=== PATIENT | female | born 1950 | race Caucasian/White ===

== ENCOUNTER → 2016-11-03 | Outpatient (CLI) | payer OTHER ==
[~2016-11-03] MED LIST: AMT50 PO; CLC6 PO; DICL1GEL28 TOP; DVN80125 PO; FEBU80TA PO; HYDR200T5 PO; INSUINJ12 SQ; INSUINJ14 SC; LCTX PO; NRN/300 PO; TMFUDL30 PO; TRAM-10 PO
[2016-11-03 14:47] LABS: HEMATOCRIT 34.9 % (37-47); MEAN CELL VOLUME 80.4 fL (80-100); MEAN CORPUSCULAR HEMOGLOBIN 27.4 pg (25-34); MEAN CORPUSCULAR HGB CONC 34.1 g/dl (32-36); MEAN PLATELET VOLUME 9.6 fL (7.4-10.4); PLATELET COUNT 163 K/uL (130-400); RED BLOOD COUNT 4.34 M/uL (4.2-5.4); WHITE BLOOD COUNT 4.41 K/uL (4.8-10.8)
[2016-11-03 15:02] LABS: URINE APPEARANCE CLEAR (CLEAR); URINE BILIRUBIN NEG (NEG); URINE COLOR YELLOW; URINE EPITHELIAL CELL AUTO >30 /lpf (0-5); URINE NITRITE NEG (NEG); UROBILINOGEN NEG (NEG)
[2016-11-03 15:03] LABS: MANUAL MICROSCOPIC REQUIRED? NO; REVIEW REQ? NO
[2016-11-03 15:16] LABS: URINE PROTIEN/CREAT RATIO 0.2 (0-0.2)
[2016-11-03 15:46] LABS: BLOOD UREA NITROGEN 23 mg/dl (7-18); BUN/CREATININE RATIO 13.4 (10-20); CALCIUM 9.6 mg/dl (8.5-10.1); CARBON DIOXIDE 31 mmol/L (21-32); CHLORIDE 95 mmol/L (98-107); GLUCOSE 304 mg/dl (70-99); POTASSIUM 4.6 mmol/L (3.5-5.1); SODIUM 132 mmol/L (136-145)
[2016-11-03 15:47] LABS: PHOSPHORUS 2.7 mg/dl (2.5-4.9)
[2016-11-03 15:56] LABS: BETA-HYDROXYBUTYRATE 0.64 mg/dL (0.2-2.81)
== END | disposition home or self-care (01) ==
LOC: C.LAB1850 12:46
PROVIDERS: ATTEND Internal Medicine Nephrology
DX: N18.3 Chronic kidney disease, stage 3 (moderate) (principal); I12.9 Hypertensive chronic kidney disease with stage 1 through stage 4 chronic kidney disease, or unspecified chronic kidney disease; E55.9 Vitamin D deficiency, unspecified; E87.1 Hypo-osmolality and hyponatremia

== ENCOUNTER → 2016-11-09 | Outpatient (CLI) | payer OTHER ==
--- NOTE | 2016-11-10 04:10 | PAP/PSG TECHNICIAN REPORT ---
[facility] Bee Robber Polysomnogram Report Study name: None Report date: 11/10/2016 Study date: 11/09/2016 Referring Physician: ELIESER GUAJARDO DO, DO Name: DIETER STINSON Interpreting Physician: Elieser Guajardo D.O. Date of : 1950 Bee Robber: Jaja Sebastian [facility]. Sex: Female Age: 66 StudyType: PSG Weight: 165 lbs Height: 66 years, Height 5' 6" BMI: 26.63 Medications: Albuterol, Amitriptyline 50 mg, Aspirin 81 mg, Calcium, Contour, D 1000, Gabapentin 300 mg, Levemir, Novolog, Plaquenil 200 mg, Symbicort 80-4.5 MCG, Uloric 80 mg, Voltaren 1 % Patient History 66 yr. old female here for a diagnostic sleep study. Patient complains of loud snoring. She was prescribed supplemental nocturnal oxygen during a hospital admission in June and is hoping to discontinue using it. Patients [place] Sleepiness scale score is 12/24. Parameters Monitored NPSG: E1-M2, E2-M1, Fp1-M2, Fp2-M1, F3-M2, F4-M2, F4-M1, C3-M2, C4-M2, C4-M1, O1-M2, O2-M2, O2-M1, T3-M2, T4-M1, P3-M2, P4-M1, CHIN1, CHIN2, HR, EKG, Legs, PFLOW, SNOR, FLOW, CFLOW, Tidal Volume, THOR, ABDO, SpO2, PLTH, CPRESS, ETCO2 Wave, ETCO2, pH Sleep Architecture Sleep Stages Time at Lights Off 9:46:21 PM STAGES Time (min.) TST (%) Time at Lights On 3:57:51 AM Wake 122.5 -- Total Recording Time (TRT) 371.50 min. N1 22.0 9 Total Sleep Period (TSP) 258.0 min. N2 140.5 56 Total Sleep Time (TST) 249.0min. N3 61.0 24 Awake Time 122.5 min. REM 25.5 10 Wake after Sleep Onset 75.5 min. Sleep Efficiency (SE) 67 % Sleep Onset Latency (DARNELL) 47.0 min. Number of Stage 1 Shifts None Awakenings 9 Stage Changes 50 Number of REM periods 3 REM 25.5 10 REM Latency 86.5 min. NREM 223.5 90 Body Position Analysis Supine Right Left Side Prone Vertical Total Sleep Time (min.) 311.7 0.0 0.0 0.00 0.0 0.6 Total Sleep Time (%) 100% 0% 0% 0 0% N/A% Total Sleep Time REM (min.) 25.5 0.0 0.0 None 0.0 0.0 Total Sleep Time NREM (min.) 223.5 0.0 0.0 None 0.0 0.0 Intermittent Wake (min.) 62.7 59.0 0.0 None 0.0 0.6 Total Sleep Period (%) 100% None None None None None Arousals Myoclonus (PLM) * Events Count Index Events Count Index Spontaneous 3 1 Events Awake (PLMW) 37 18.1 Respiratory 7 1.9 Events Asleep w/ Arousal (PLMA) 4 1.0 PLM 4 1 Events Asleep w/o Arousal (PLMS) 224 54.0 Snoring 1 0 Total Asleep 228 54.9 Total 15 4 Total 265 43 Respiratory Analysis * CA OA MA CH H RERA Total Count 1 2 0 0 134 1 137 Index 0.2 0.5 0.0 0 32.3 0 33.3 Mean Duration 20.0 18.0 0.0 0.00 23.4 17.8 23.3 Longest Duration 20.0 20.9 0.0 0.00 0.0 17.8 58.7 Respiratory Event Summary Total Supine ~Supine Right Left Prone REM NREM Apneas Count 3 3 N/A N/A N/A N/A 1 2 Index 0.7 1 N/A N/A N/A N/A 2 1 Hypopneas (4% Desat) Count 134 134 N/A N/A N/A N/A 32 102 Index 32.3 32.3 N/A N/A N/A N/A 75.3 27.4 Apneas & All Hypopneas Count 137 137 N/A N/A N/A N/A 33 104 Index 33.0 33 N/A N/A N/A N/A 77.6 27.9 Respiratory Events (Furnace Installer Helper+All Hyp+RERA) Count 137 138 N/A N/A N/A N/A 33 104 Index 33.3 33 N/A N/A N/A N/A 80.0 27.9 Respiratory Related Arousal Count 7 138 N/A N/A N/A N/A 4 4 Index 1.9 2 N/A N/A N/A N/A 9 1 Snoring Analysis Supine Right Left Prone REM NREM Total Snore duration 7.7 min Snores count 366 N/A N/A N/A 20 346 366 Snore mean duration 1.3 Sec Snores index 88 N/A N/A N/A 47.1 92.9 88.2 TST with snoring (%) 3.1% Desaturation Event Summary: Minimum %SpO2 Event Count Mean/Min/Max Duration(sec.) Desaturation Index % Time In Bed > 90 228 17.6 / 5.3 / 59.0 79.1 53.8 86 - 90 74 15.0 / 7.0 / 36.8 31.4 43.9 81 - 85 1 16.8 / 16.8 / 16.8 12.1 1.5 76 - 80 0 N/A 0.0 0.4 71 - 75 0 N/A 0.0 0.3 66 - 70 0 N/A 0.0 0.0 61 - 65 0 N/A 0.0 0.0 56 - 60 0 N/A 0.0 0.0 51 - 55 0 N/A 0.0 0.0 < 50 0 N/A 0.0 0.0 Total REM NREM Awake <50% 0.0 min. 0.0 min. 0.0 min. 0.0 min. 51 - 60% 0.0 min. 0.0 min. 0.0 min. 0.0 min. 61 - 70% 0.0 min. 0.0 min. 0.0 min. 0.0 min. 71 - 80% 2.3 min. 1.9 min. 0.4 min. 0.0 min. 81 - 90% 146.2 min. 7.1 min. 124.9 min. 14.2 min. 91 - 100% 173.0 min. 16.4 min. 98.2 min. 58.3 min. Average 91 91 90 92 Minimum SpO2 70 71 70 81 Desaturation Event Index 38.4 84.7 43.8 19.1 # Desat. Events below 89% 173 24 131 18 Time(%) with Saturation below 89% 13.1 1.9 10.4 0.8 Time(min.) with Saturation below 89% 42.0 6.2 33.3 2.4 Time (mins) REM (mins) NREM (mins) % of TST SpO2 Below 90% 192 31 N161 32.8 SpO2 Below 88% 46 0 0 7 Heart Rate Analysis Min (bpm) Max (bpm) Average (bpm) Awake 78 107 88 NREM 82 97 89 REM 75 96 86 Overall 75 97 89 Supplemental O2 Values Minimum O2 level: None Value Start Time End Time Bee Robber Comments Mrs. Stinson slept in the right and supine positions. No cardiac arrhythmia. PLMs noted. No bruxism noted. Snoring was noted and scored as a 3 on a scale of 0 through 5. (0=no snoring, 5=snoring loud enough to be heard through a closed door or down the [address] way) Mrs. Stinson awoke to use the restroom at 3:06 with stomach pains, she took an anti-diarrhea medication and attempted twice two get reconnected and resume study. At 3:57 am Mrs. Stinson had a complete study and wished to be unhooked to use the restroom freely. Mrs. Stinson stated, that was a normal night until the stomach pains started. The final report will be interpreted and signed by a sleep physician. The completed physician report will then be placed in the patient medical record. Therapy (cm H2O) 0 TIB (min.) 371.5 TST (min.) 249.0 Sleep Onset (min.) 47.0 REM Onset From Sleep (min.) 86.5 Sleep Efficiency % 67 Wakefulness (%) 33 Wakefulness (min.) 122.5 NREM 1 (%) 9 NREM 1 (min.) 22.0 NREM 2 (%) 56 NREM 2 (min.) 140.5 NREM 3 (%) 24 NREM 3 (min.) 61.0 REM (%) 10 REM (min.) 25.5 # Arousals 15 Arousal Index 4 # Snore 366 Snore Index 88.2 AHI 33.0 AHI Supine 33 AHI Non-Supine N/A NREM AHI 27.9 REM AHI 77.6 RDI 33.3 # Obstructive Apnea 2 # Central Apnea 1 # Mixed Apnea 0 # Hypopneas 134 RERAs 1 Total Respiratory Events 138 Time Below SpO2 89% (min.) 39.6 Mean NREM SpO2 (%) 90 Mean REM SpO2 (%) 91 Mean Sleep SpO2 (%) 90 Min NREM SpO2 (%) 70 Min REM SpO2 (%) 71 Position Supine (min.) 311.7 Position Non-supine (min.) 0.0 LM Index Sleep 54.9 LM Index NREM 49.9 LM Index REM 98.8 Mean Heart Rate (bpm) 89 Min Heart Rate (bpm) 75
--- NOTE | 2016-11-12 20:50 | Sleep Study ---
Sleep Study Report Date of Service: 11/09/2016 Sleep Study Report Clinical data: Patient is a 66-year-old female with a history of snoring. She has excessive daytime somnolence with an Brundidge score of 12. She had an overnight pulse oximetry study showing severe hypoxia with saturations as low as 65 percent. This was an in-lab overnight diagnostic polysomnography. Sleep architecture: Total sleep. Was 258.0 minutes. The total sleep time was 249.0 minutes. The sleep efficiency was moderately reduced to 67 percent. Sleep onset latency was prolonged to 47 minutes. Wake after sleep onset was prolonged to 75.5 minutes. REM latency was normal at 86.5 minutes. Sleep consisted of stage N1 9 percent, stage N2 56 percent, stage N3 24 percent , and stage REM 10 percent. Arousal data: Patient had a total of 15 arousals including 3 spontaneous arousals, 7 respiratory arousals, 4 PLM arousals, and 1 snoring arousal. The arousal index was 4. PLM data: The patient had a total of 228 periodic limb movements of sleep for an index of 54.9. There were only 4 arousals for a PLM arousal index of 1.0. Respiratory data: The patient had a total of 137 respiratory events including 1 central apnea, 2 obstructive apneas, and 134 hypopneas. The hypopneas were scored according to the 4 percent desaturation rule. The longest apnea was 20.9 seconds. The mean duration of the hypopneas was 23.4 seconds. The apnea-hypopnea index was elevated to 33.0 events per hour. This reflects moderate sleep apnea. Oximetry data the average saturation was 91 percent. The minimum saturation was 70 percent. The patient had a total of 42 minutes with saturations less than 89 percent. EKG: The underlying cardiac rhythm was normal sinus. The cardiac rate ranged from 75 to 97 beats per minute. The average rate was 89 beats per minute. No arrhythmia was noted. Bricklayer Apprentice comments: The patient slept in the right and supine positions. PLMS noted. No bruxism noted. Snoring was noted and scored as a 3 on a scale of 0 through 5. The patient awaken to use the restroom at 3:06 a.m. was stomach pains. At 3:57 a.m. the patient had a complete study and wished to be on how to use the restroom freely. Impressions: 1. Obstructive sleep apnea-moderate 2. Periodic limb movement disorder Comments: The patient has moderate sleep apnea. Her sleep efficiency was decreased mainly related to a prolonged sleep latency. Her sleep architecture showed a decrease in REM sleep. She spent almost the entire night supine. There were frequent limb movements but with few arousals. Oxygenation was abnormal. She does have diabetes mellitus as a comorbidity. Treatment is indicated. Recommendations: 1. It is advised that the patient be given a trial of nasal CPAP. This could be given by an in-lab CPAP titration study or with auto CPAP. 2. If possible the patient should avoid sleeping in the supine position. There is typically more respiratory events when supine. 3. Further suggestions will be made following a trial of nasal CPAP. 4. If the patient refuses nasal CPAP therapy she would be a candidate for nocturnal oxygen therapy. Copies To 1: Elieser Thompson DO; Keyla Albrecht M.D.
== END | disposition home or self-care (01) ==
LOC: C.NEUR 21:00
PROVIDERS: ATTEND Internal Medicine Pulmonary Disease
DX: G47.33 Obstructive sleep apnea (adult) (pediatric) (principal); I12.9 Hypertensive chronic kidney disease with stage 1 through stage 4 chronic kidney disease, or unspecified chronic kidney disease; N18.3 Chronic kidney disease, stage 3 (moderate); D86.9 Sarcoidosis, unspecified; E55.9 Vitamin D deficiency, unspecified; E11.9 Type 2 diabetes mellitus without complications

== ENCOUNTER → 2016-11-17 | Outpatient (CLI) | payer OTHER ==
--- NOTE | 2016-11-17 16:49 | DIAGNOSTIC IMAGING REPORT ---
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 There are no acute fractures. There is an old ulnar styloid fracture. There is a large bony erosion involving the radial aspect of the middle phalanx of the fifth finger distally. There is an old healed fracture of the fourth metacarpal. Arthritic changes are present the level the first carpal metacarpal joint. There is minimal subluxation. IMPRESSION: 1. No acute fractures 2. Large bony erosion involving the middle phalanx of the fifth finger Electronically signed by: Isaias Sotelo M.D. 11/17/2016 4:48 PM Dictated Date/Time: 11/17/2016 4:45 PM
--- NOTE | 2016-11-17 16:59 | DIAGNOSTIC IMAGING REPORT ---
LEFT HAND MIN 3 VIEWS ROUTINE CLINICAL HISTORY: Sarcoidosis. Hereditary sensory-motor neuropathy. COMPARISON: None FINDINGS: Alignment of left hand is anatomic. There is no fracture or suspicious lesion. Heterogeneity of the bones is noted with numerous lucencies, a nonspecific finding. There is mild joint space narrowing within multiple articulations of the left hand. IMPRESSION: 1. Heterogeneity of the osseous structures within the left hand with numerous scattered lucencies, a nonspecific finding. 2. Mild joint space narrowing within multiple articulations of the left hand. Electronically signed by: Sergio Buitrago M.D. 11/17/2016 4:57 PM Dictated Date/Time: 11/17/2016 4:55 PM
[2016-11-17 17:58] LABS: C-REACTIVE PROTEIN 1.01 mg/dl (0-0.29); RHEUMATOID FACTOR < 10.0 U/mL (0-15); TOTAL IRON BINDING CAPACITY 309 mcg/dl (250-450)
== END | disposition home or self-care (01) ==
LOC: C.RAD1850 16:27
PROVIDERS: ATTEND Internal Medicine Rheumatology
DX: D86.9 Sarcoidosis, unspecified (principal); G60.0 Hereditary motor and sensory neuropathy; M79.641 Pain in right hand; M79.642 Pain in left hand; M85.841 Other specified disorders of bone density and structure, right hand

== ENCOUNTER → 2017-04-30 | Outpatient (CLI) | payer OTHER ==
[2017-04-30 12:41] LABS: MEAN CELL VOLUME 80.7 fL (80-100); MEAN CORPUSCULAR HEMOGLOBIN 26.9 pg (25-34); MEAN CORPUSCULAR HGB CONC 33.3 g/dl (32-36); MEAN PLATELET VOLUME 9.9 fL (7.4-10.4); PLATELET COUNT 194 K/uL (130-400); RED CELL DISTRIBUTION WIDTH CV 14.1 % (11.5-14.5); RED CELL DISTRIBUTION WIDTH SD 41.2 fL (36.4-46.3); WHITE BLOOD COUNT 5.25 K/uL (4.8-10.8)
[2017-04-30 13:02] LABS: ALBUMIN 3.6 gm/dl (3.4-5.0); BLOOD UREA NITROGEN 24 mg/dl (7-18); CALCIUM 9.2 mg/dl (8.5-10.1); CARBON DIOXIDE 31 mmol/L (21-32); CREATININE 1.65 mg/dl (0.60-1.20); GLUCOSE 275 mg/dl (70-99); PHOSPHORUS 2.5 mg/dl (2.5-4.9); POTASSIUM 4.7 mmol/L (3.5-5.1); SODIUM 130 mmol/L (136-145)
== END | disposition home or self-care (01) ==
LOC: C.LABPBG 09:51
PROVIDERS: ATTEND Internal Medicine Nephrology
DX: N18.3 Chronic kidney disease, stage 3 (moderate) (principal); I12.9 Hypertensive chronic kidney disease with stage 1 through stage 4 chronic kidney disease, or unspecified chronic kidney disease; E87.1 Hypo-osmolality and hyponatremia; E55.9 Vitamin D deficiency, unspecified

== ENCOUNTER → 2017-08-16 | Outpatient (CLI) | payer OTHER ==
--- NOTE | 2017-08-16 16:20 | DIAGNOSTIC IMAGING REPORT ---
CHEST 2 VIEWS ROUTINE HISTORY: 67 years-old Female D86.9 Sarcoidosis COMPARISON: CT chest 06/13/2016, chest radiographs 12/06/2015 TECHNIQUE: PA and lateral views of the chest FINDINGS: Cardiac silhouette is within normal limits. Chronic reticular opacities are redemonstrated with cephalad retraction and elevation of the lisset. No pneumothorax or pleural effusion. Calcified granulomas about the bilateral lisset are again seen. No lobar airspace consolidation to suggest pneumonia. Disease within the chest appears generally unchanged from comparison. Bones appear grossly intact. IMPRESSION: 1. No acute process. 2. Chronic interstitial lung disease. The above report was generated using voice recognition software. It may contain grammatical, syntax or spelling errors. Electronically signed by: Caesar Owusu M.D. 08/16/2017 4:18 PM Dictated Date/Time: 08/16/2017 4:16 PM
== END | disposition home or self-care (01) ==
LOC: C.RAD1850 15:14
PROVIDERS: ATTEND Internal Medicine Pulmonary Disease
DX: D86.9 Sarcoidosis, unspecified (principal); J84.9 Interstitial pulmonary disease, unspecified

== ENCOUNTER → 2017-12-07 | Outpatient (CLI) | payer OTHER ==
[2017-12-07 12:44] LABS: BASO % 0.6 %; BASO ABS # 0.03 K/uL (0-0.2); EOS ABS # 0.21 K/uL (0-0.5); HEMATOCRIT 34.5 % (37-47); HEMOGLOBIN 11.6 g/dL (12.0-16.0); IG# 0.01 K/uL (0.00-0.02); LYMPH % 37.6 %; LYMPH ABS # 1.95 K/uL (1.2-3.4); MEAN CORPUSCULAR HEMOGLOBIN 27.2 pg (25-34); MEAN CORPUSCULAR HGB CONC 33.6 g/dl (32-36); MEAN PLATELET VOLUME 9.6 fL (7.4-10.4); MONO % 9.2 %; MONO ABS # 0.48 K/uL (0.11-0.59); NEUT % 48.4 %; NEUT ABS # 2.51 K/uL (1.4-6.5); PLATELET COUNT 191 K/uL (130-400); RED CELL DISTRIBUTION WIDTH CV 13.9 % (11.5-14.5); RED CELL DISTRIBUTION WIDTH SD 40.9 fL (36.4-46.3); WHITE BLOOD COUNT 5.19 K/uL (4.8-10.8)
[2017-12-07 13:19] LABS: ALBUMIN 3.4 gm/dl (3.4-5.0); ALKALINE PHOSPHATASE 145 U/L (45-117); ALT/SGPT 17 U/L (12-78); AST/SGOT 17 U/L (15-37); CREATININE 1.73 mg/dl (0.60-1.20); TOTAL PROTEIN 7.9 gm/dl (6.4-8.2)
== END | disposition home or self-care (01) ==
LOC: C.LABPBG 08:18
PROVIDERS: ATTEND Internal Medicine Rheumatology
DX: D86.9 Sarcoidosis, unspecified (principal); M13.0 Polyarthritis, unspecified; Z79.899 Other long term (current) drug therapy

== ENCOUNTER 2022-01-26 13:24 | Inpatient (IN) ==
--- NOTE | 2022-01-26 13:44 | ED Triage Note ---
Date of Service January 26, 2022 History of Present Illness This patient was briefly evaluated while in triage. An abbreviated physical exam was performed. This patient is a 71-year-old Female with past medical history of pulmonary sarcoidosis, GUY, pulmonary HTN, pneumonia, who presents to the ED for ev aluation of difficulty breathing that worsened 4 days ago after finishing a prednisone taper for a flair of her sarcoidosis back in December. She is having a difficult time getting around her house due to dyspnea. Has been admitted in the past. Increased O2 to 4L from 3L today and this helped. Feels similar to prior flairs. No chest pain. Physical Exam CONSTITUTIONAL: slightly dyspneic, otherwise conversational, in mild distress CARDIAC: tachycardic rate, regular rhythm PULMONARY: dyspneic, rales in right base Initial orders for labs and / or imaging were placed and patient was placed in the waiting area until a bed is available. Please see further documentation for the full ED course.
--- NOTE | 2022-01-26 14:24 | XRay Report ---
XR chest 2V PA/lateral HISTORY: 71 years-old Female Dyspnea acute shortness of breath COMPARISON: Chest radiograph 05/30/2019, chest CT 06/13/2016 TECHNIQUE: PA and lateral views of the chest FINDINGS: Cardiac silhouette is enlarged. Bilateral hilar enlargement with architectural distortion, upper lobe and perihilar predominant scarring. No pneumothorax. Small pleural effusions. Bilateral reticular no dular opacities with progressively worsened airspace densities. Degenerative changes of the shoulders and spine. IMPRESSION: 1. Hilar enlargement with chronic reticular nodular opacities compatible with the patient's clinical history of sarcoidosis with chronic fibrotic change. 2. Progressively worsened bilateral mixed interstitial and alveolar opacities which may represent wor sening of the pulmonary sarcoidosis, superimposed pneumonia or pulmonary edema. 3. Cardiomegaly with small pleural effusions. ACT 112: Negative or not required by law. The above report was generated using voice recognition software. It may contain grammatical, syntax o r spelling errors. Electronically signed by: Cedric Owusu M.D. 01/26/2022 2:22 PM
[2022-01-26 15:19] LABS: Basophils # (auto) 0.03 K/uL (0-0.2); Basophils % (auto) 0.3 %; Eosinophils # (auto) 0.01 K/uL (0-0.50); Eosinophils % (auto) 0.1 %; Hematocrit (blood only) 37.4 % (34.1-44.9); Immature Granulocytes # (auto) 0.06 K/uL (0.00-0.02); Immature Granulocytes % (auto) 0.6 %; Lymphocytes # (auto) 0.42 K/uL (1.2-3.4); Lymphocytes % (auto) 4.3 %; Mean Corpuscular Hemoglobin 26.3 pg (25.0-34.0); Mean Corpuscular Hgb Conc 32.1 g/dL (32.0-36.0); Mean Corpuscular Volume 81.8 fL (80.0-100.0); Mean Platelet Volume 9.3 fL (9.4-12.3); Monocytes # (auto) 0.63 K/uL (0.24-0.82); Monocytes % (auto) 6.5 %; Neutrophils # (auto) 8.55 K/uL (1.4-6.5); Neutrophils % (auto) 88.2 %; Platelet Count 222 K/uL (130-400); RDW Coefficient of Variation 15.1 % (11.5-14.5); RDW Standard Deviation 44.4 fL (36.4-46.3); Red Blood Count 4.57 M/uL (3.93-5.22)
[2022-01-26 15:48] LABS: Alanine Aminotransferase 30 U/L (7-52); Albumin Globulin Ratio 0.9 (0.9-2); Albumin Level 3.5 gm/dl (3.4-5.0); Alkaline Phosphatase 147 U/L (34-104); Anion Gap 8 (3-11); Aspartate Aminotransferase 27 U/L (13-39); Blood Urea Nitrogen 31 mg/dl (6-23); Calcium 9.3 mg/dl (8.5-10.1); Carbon Dioxide 30 mmol/L (21-32); Chloride 93 mmol/L (98-107); Globulin 3.8 gm/dl (2.5-4.0); Glucose 289 mg/dl (70-99(Fasting)); Potassium 5.1 mmol/L (3.5-5.1); Sodium 131 mmol/L (136-145); Total Protein 7.3 gm/dl (6.0-8.3)
[2022-01-26 16:10] LABS: Troponin I High Sensitivity 51.1 pg/ml (0-14)
[2022-01-26 16:16] LABS: Influenza A virus by PCR Negative (Neg); Influenza B virus by PCR Negative (Neg); RSV by PCR Negative (Neg); SARS CoV2 RNA(COVID-19) InHosp NEGATIVE (Negative)
[2022-01-26 16:23] LABS: BUN Creatinine Ratio 16.6 (10-20); Est GFR (African American) 30.8 ml/min; Est GFR (Non-African American) 26.6 ml/min
[2022-01-26] MEDS ORDERED: ASPIRIN CHEW 324 MG PO STA (17:02)
[2022-01-26] MEDS ORDERED: SODIUM CHLORIDE 0.9% 1000ML 500 ML IV ONE (17:02)
--- NOTE | 2022-01-26 17:07 | Emergency Department Note ---
Impression & Plan Chest pain, Hypoxia, NELSON (dyspnea on exertion), Sarcoid, UNIQUE (acute kidney injury) ED Provider Note NAME: DIETER STINSON AGE: 71 SEX: F : 1950 ARRIVES VIA: Walk-In INFORMANT: Patient, ED PROVIDER(S): Ilir Woo DO CHIEF COMPLAINT: Shortness of breath HPI: The patient is a 71-year-old female who presented to the emergency department for an evaluation of difficulty breathing. The patient's noticed difficulty breathing especially with exertion. She has noticed a cough which is nonproductive. She denies having any hemoptysis or chest pain. She denies having any lower extremity swelling. She started having symptoms approximately 1 month ago. She is scheduled for an echocardiogram later this week. The lisbeth ent states she was seen by her primary hopper operator as she has a history of sarcoidosis. She was started on a course of steroids which has slowly been decreasing. She recently stopped the steroids last week and feels as though the symptoms are became much worse over the last few days. The patient denies having any orthopnea. The patient called her hopper operator and was referred to the emergency department for further evaluation. ROS: See above HPI for pertinent positives & negatives. A total of 10 systems reviewed and were otherwise negative. PAST MEDICAL HISTORY: See Below PAST SURGICAL HISTORY: See Below FAMILY HISTORY: See Below SOCIAL HISTORY: See Below HOME MEDICATIONS: See Below ALLERGIES: See Below VITALS: See Below PHYSICAL EXAMINATION: GENERAL: Patient is awake alert in no acute distress patient is resting comfortably and showing no signs of anxiety EYES: The conjunctivae are clear. The pupils are round and reactive. EARS, NOSE, MOUTH AND THROAT: The nose is without any evidence of any deformity. Mucous membranes are moist. Tongue is midline. NECK: The neck is nontender and supple. RESPIRATORY: Breath sounds are noted throughout. There were faint rales noted at both bases. There is mild conversational dyspnea. CARDIOVASCULAR: Regular rate and rhythm noted there no murmurs rubs or gallops normal S1 normal S2. GASTROINTESTINAL: The abdomen is soft. Abdomen is nontender. PELVIS: The Pelvis is stable. No tenderness to palpation is noted. BACK: No midline tenderness or or step-off noted range of motion in flexion extension as well as rotation no signs of muscle spasm noted MUSCULOSKELETAL/EXTREMITIES: There is no evidence of gross deformity full range of motion is noted in the hips and shoulders. SKIN: There is no obvious evidence of any rash. There are no petechiae, pallor or cyanosis noted. NEUROLOGIC: Patient is awake alert and oriented x3 MEDICAL DECISION MAKING: The patient is a 71-year-old female who presented to the emergency department for an evaluation of difficulty breathing. The patient has been on steroids for multiple weeks. These were recently weaned off and the patient started having worsening symptoms. The patient called her primary pulmonary doctor and was referred to the emergency department. I discussed patient's laboratory and radiographic studies with her. She was found to have a significant degree of hypoxia. Because of this I did discuss her condition with the on-call [facility]. They have agreed to evaluate the patient in the emergency department for further management and disposition. Triage Nursing notes reviewed. Prior medical records reviewed Vital Signs: reviewed and remarkable for hypoxia Differential diagnosis: Reactive airway disease, pneumonia, pneumothorax, COPD, CHF, infections, cardiac ischemia, pulmonary embolism, musculoskeletal, gastrointestinal, as well as other pathologies. ER treatment provided: See below Diagnostics interpreted by me: ECG: EKG was obtained in the emergency department. My interpretation is sinus tachycardia 104 bpm. There is no ectopy. There is no acute ST segment abnormalities noted. Anterior T wave abnormalities were appreciated. This was compared to a tracing from September 16, 2015. No changes were noted. Cardiac Monitoring: An order was placed for continuous cardiac monitoring. The monitor shows a rate of 98 bpm with sinus rhythm. Laboratory studies: As stated above and show below. Imaging studies: See below Consultation(s): I discussed this case with Dr. Lim who is on-call for the [facility]. Past Med/Surg History Medical History Acute dyspnea Chronic hypoxemic respiratory failure Chronic kidney disease, stage III (moderate) History of endometriosis History of influenza History of osteopenia History of parotitis Hyperparathyroidism Hypertension Hyponatremia Left knee pain GUY (obstructive sleep apnea) Pulmonary hypertension Pulmonary sarcoidosis Restrictive lung disease Sinus tachycardia Surgical History History of tonsillectomy History of total abdominal hysterectomy Family History Unknown Breast cancer Colorectal cancer Bladder cancer Mother Thyroid disorder Father Coronary heart disease Diabetes Kidney disease Social History Smoking Status: Never smoker Preferred Language: Estonian Feels Safe at Home: Yes Allergies Allergies Allergy/AdvReac Type Severity Reaction Status Date / Time acetaminophen Allergy Unknown Verified 12/25/21 12:54 benzonatate Allergy Unknown UNKNOWN Verified 12/25/21 12:54 cephalexin [From Keflex] Allergy Unknown Verified 12/25/21 12:54 glimepiride Allergy Unknown Verified 12/25/21 12:54 methotrexate Allergy Unknown Verified 12/25/21 12:54 oxaprozin Allergy Unknown UNKNOWN Verified 12/25/21 12:54 propoxyphene AdvReac Intermediate nausea/vomi Verified 12/25/21 12:54 ting Home Meds Home Medications Medication Instructions Recorded Confirmed amitriptyline 25 mg tablet 25 mg PO DAILY 01/31/19 01/26/22 atorvastatin 10 mg tablet 10 mg PO DAILY #30 tabs 01/31/19 01/26/22 blood sugar diagnostic (Contour #10 ea 01/31/19 12/25/21 Next Test Strips) febuxostat 80 mg tablet 80 mg PO DAILY 01/31/19 01/26/22 gabapentin 300 mg capsule 300 mg PO QID 01/31/19 01/26/22 hydroxychloroquine 200 mg tablet 200 mg PO DAILY #90 tabs 01/31/19 01/26/22 valsartan 80 1 tab PO DAILY 01/31/19 01/26/22 mg-hydrochlorothiazide 12.5 mg tablet pantoprazole 20 mg tablet,delayed 40 mg PO DAILY 05/30/19 01/26/22 release tramadol 50 mg tablet 50 mg PO Q6H PRN Pain 05/30/19 01/26/22 insulin aspart U-100 100 unit/mL 8 unit subcut BID 05/30/21 01/26/22 subcutaneous solution insulin detemir U-100 100 unit/mL 30 unit subcut QAM 05/30/21 01/26/22 subcutaneous solution fluticasone furoate 200 1 inh inhalation Q24H 01/26/22 01/26/22 mcg-vilanterol 25 mcg/dose inhalation powder (Breo Ellipta) Previous Rx's Medication Instructions Recorded ergocalciferol (vitamin D2) 1,250 50,000 unit PO .COMPLEX #12 caps 11/15/20 mcg (50,000 unit) capsule Flutter Valve #1 ea 12/17/21 nebulizer accessories #1 ea 12/17/21 nebulizer and compressor #1 ea 12/17/21 prednisone 10 mg tablet 30 mg PO DAILY #90 tabs 12/17/21 ipratropium 0.5 mg-albuterol 3 mg 3 ml inhalation BID wheezing #180 12/19/21 (2.5 mg base)/3 mL nebulization mL soln Results & Data (ED) Vital Signs Vital Signs - 24 hr 01/26/22 13:36 01/26/22 13:36 01/26/22 16:47 Temperature 36.4 C L Temperature Source Temporal Artery Scan Pulse Rate 114 H Pulse Rate [Finger] 92 H Respiratory Rate 22 20 Respiratory Effort / Characteristics Non-Labored Spontaneous Non-Labored Spontaneous Non-Labored Respiratory Depth Normal Normal Normal Respiratory Pattern Regular Regular Blood Pressure 98/61 L Blood Pressure [Right Arm] 127/81 Blood Pressure Mean 73 Blood Pressure Mean [Right Arm] 96 Blood Pressure Position Sitting Blood Pressure Position [Right Arm] Semi-fowlers Pulse Oximetry 96 98 Oxygen Delivery Method Nasal Cannula Nasal Cannula Oxygen Flow Rate 4 4 Sepsis Recent Fever Within 48 Hours No Sepsis New/Unexplained Change in Mental Status No Sepsis Action Taken by Nursing No Action Required Home Medications Current Medication List: was personally reviewed by me Laboratory Data Attestation: I reviewed the patient's lab results. Result diagrams: 01/26/22 14:55 01/26/22 14:55 Lab Results 01/26/22 01/26/22 01/26/22 Range/Units 14:55 14:55 15:30 WBC 9.70 (4.8-10.8) K/ul RBC 4.57 (3.93-5.22) M/uL Hgb 12.0 (12.0-16.0) g/dl Hct 37.4 (34.1-44.9) % MCV 81.8 (80.0-100.0) fL MCH 26.3 (25.0-34.0) pg MCHC 32.1 (32.0-36.0) g/dL RDW Std Deviation 44.4 (36.4-46.3) fL RDW Coeff of Jessica 15.1 H (11.5-14.5) % Plt Count 222 (130-400) K/uL MPV 9.3 L (9.4-12.3) fL Immature Gran % (Auto) 0.6 % Neut % (Auto) 88.2 % Lymph % (Auto) 4.3 % Martin % (Auto) 6.5 % Eos % (Auto) 0.1 % Baso % (Auto) 0.3 % Neut # (Auto) 8.55 H (1.4-6.5) K/uL Lymph # (Auto) 0.42 L (1.2-3.4) K/uL Martin # (Auto) 0.63 (0.24-0.82) K/uL Eos # (Auto) 0.01 (0-0.50) K/uL Baso # (Auto) 0.03 (0-0.2) K/uL Immature Gran # (Auto) 0.06 H (0.00-0.02) K/uL Sodium 131 L (136-145) mmol/L Potassium 5.1 (3.5-5.1) mmol/L Chloride 93 L (98-107) mmol/L Carbon Dioxide 30 (21-32) mmol/L Anion Gap 8 (3-11) BUN 31 H (6-23) mg/dl Creatinine 1.87 H (0.6-1.2) mg/dl Est Cr Clr Drug Dosing Not Reportable Est GFR ( Amer) 30.8 ml/min Est GFR (Non-Af Amer) 26.6 ml/min BUN/Creatinine Ratio 16.6 (10-20) Glucose 289 H (70-99(Fasting)) mg/dl Calcium 9.3 (8.5-10.1) mg/dl Total Bilirubin 1.0 (0.2-1.0) mg/dl AST 27 (13-39) U/L ALT 30 (7-52) U/L Alkaline Phosphatase 147 H (34-104) U/L Troponin I High Sens 51.1 H* (0-14) pg/ml Total Protein 7.3 (6.0-8.3) gm/dl Albumin 3.5 (3.4-5.0) gm/dl Globulin 3.8 (2.5-4.0) gm/dl Albumin/Globulin Ratio 0.9 (0.9-2) SARS-CoV-2 (PCR) NEGATIVE (Negative) Influenza Type A (PCR) Negative (Neg) Influenza Type B (PCR) Negative (Neg) RSV (RT-PCR) Negative (Neg) Administered Medications Discontinued Medications Aspirin (Aspirin Chew 324 Mg) 324 mg PO NOW STA Stop: 01/26/22 17:03 Last Admin: 01/26/22 17:09 Dose: 324 mg Documented By: CRAIG Sodium Chloride (Nss 1000ml) 500 mls @ 999 mls/hr IV .Q31M ONE Stop: 01/26/22 17:32 Last Infusion: 01/26/22 18:05 Dose: 0 mls/hr Documented By: Admin: 01/26/22 17:10 Dose: 999 mls/hr Documented By: CRAIG Imaging Data Radiologist's Impression: Chest X-Ray 01/26/22 13:44 XR chest 2V PA/lateral HISTORY: 71 years-old Female Dyspnea acute shortness of breath COMPARISON: Chest radiograph 05/30/2019, chest CT 06/13/2016 TECHNIQUE: PA and lateral views of the chest FINDINGS: Cardiac silhouette is enlarged. Bilateral hilar enlargement with architectural distortion, upper lobe and perihilar predominant scarring. No pneumothorax. Small pleural effusions. Bilateral reticular nodular opacities with progressively worsened airspace densities. Degenerative changes of the shoulders and spine. IMPRESSION: 1. Hilar enlargement with chronic reticular nodular opacities compatible with the patient's clinical history of sarcoidosis with chronic fibrotic change. 2. Progressively worsened bilateral mixed interstitial and alveolar opacities which may represent worsening of the pulmonary sarcoidosis, superimposed pneumonia or pulmonary edema. 3. Cardiomegaly with small pleural effusions. ACT 112: Negative or not required by law. The above report was generated using voice recognition software. It may contain grammatical, syntax or spelling errors. Electronically signed by: Cedric Owusu M.D. 01/26/2022 2:22 PM Discharge Plan Visit Data Chief Complaint: Shortness of Breath/Dyspnea Stated Complaint: SOB ED Provider: Ilir Woo Discharge Problem: Chest pain, Hypoxia, NELSON (dyspnea on exertion), Sarcoid, UNIQUE (acute kidney injury) Patient Disposition: Admitted As Inpatient Discharge Instructions Interventions: ED Discharge Assessment Last Done: 01/26/22 21:53
--- NOTE | 2022-01-26 17:34 | History & Physical Report ---
Date of Service January 26, 2022 Assessment & Plan (1) Acute dyspnea: Plan: Worsening shortness of breath, history of pulmonary sarcoid on prednisone wean Patient was on prednisone taper starting 12/17/2021, 30 mg for 10 days and tapering by 10 mg every 10days to 10 mg, then 5 mg for 10 days before stopping Chronic 2 L oxygen requirement GUY: Continue CPAP with oxygen bleed - HR-CT-Chest 12/30/21: 1. Findings of interstitial/fibrotic lung disease with a lower lobe predominance as detailed above. This is similar to the 12/12/2019 examination and may be related to the reported history of sarcoidosis.2. There are calcified mediastinal and hilar lymph nodes.3. There is no evidence of superimposed airspace consolidation or pleural effusion.4. Cardiomegaly with evidence of pulmonary artery hypertension.5. Cholelithiasis.6. Additional findings as above. Tachycardia Thought to be reactive to chronic hypoxic respiratory failure and poor compliance with oxygen treatment TTE: pending - CT-C repeat: pending Will continue prednisone, rate increased to 20 mg daily - consult pulmonology Elevated troponin Suspect demand, no EKG changes. No chest pain on assessment. Trend 2-hour and every 6 hours Patient greatly improved on 4 L of oxygen. 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 Will convert to basal/bolus with Lantus while inpatient Goal BSG [id number], SSI Glucose checks AC/at bedtime Insomina - Continue SUBSTITUTE TEACHER amitryptaline DVT PPx: SCDs, heparin Dispo: MEd [facility] for cardiac eval Diet; T2DM/HH CODE STATUS: Conditional, no intubation (2) Sinus tachycardia: (3) Pulmonary hypertension: (4) GUY (obstructive sleep apnea): (5) Pulmonary sarcoidosis: (6) Hyperparathyroidism: (7) Hypertension: (8) Hyponatremia: (9) Chronic kidney disease, stage III (moderate): (10) Diabetes: History of Present Illness Primary Care Provider: Keyla Albrecht MD Tone Ann is a 71-year-old female with a past medical history of GUY, restrictive lung disease, pulmonary sarcoidosis, hyperparathyroidism, hypertension, hyponatremia, CKD 3, DM 2, and chronic hypoxic respiratory failure who presented to the emergency department for difficulty breathing and worsened dyspnea on exertion. She has had an increased cough. No chest pain, chest pressure, diaphoresis, extremity swelling, or orthopnea. Does have a history of sarcoidosis and has been tapering steroids. She did discuss her symptoms with her outpatient trade embalmer who recommended she present to the ER for further evaluation Hx sarcoid on steroids x1 month. Feels worse overall for several days. Trop elevated, EKG unchanged. Cardiac vs pulmonary. No leukocytosis Hemoglobin 12.0 Sodium mildly decreased to 131, potassium 5.1 Patent baseline approximately 1.451.54 Creatinine acutely elevated on admission to 1.87 BSG 289 Troponin 51.1 high-sensitivity on admission COVID/flu/RSV negative CXR: Progressively worsened mixed interstitial and alveolar opacities, cardiomegaly with small pleural effusions, chronic reticulonodular opacities Tone reports she had a flare up of her sarcoid in December. Has been seeing Dr. Benjamin and has been on a prednisone taper. She felt she was doing great at first with good breathing and energy. Came off of it last , and ever since has had progressive weakness, shortness of breath, palpitations with 'fluttering heart' and has been more short of breath even with talking. Did has a slow fall this morning from weakness this morning and called Dr. Solis this AM who recommended she come in to the ER/hospital for further evaluation and treatment. At time of assessment denies chest pain. No shortness of breath at rest, much better with 4L o2. Uses 2L oxygen at home. No fevers, chills, or sweats No cough. No productive cough/sputum production Endorses some wheezing when breathing hard Endorses mild constipation after 1x episode of diarrhea and immodium use a few days ago. Went this AM. No melena/BRBPR. Urinating normally, has a little bit more urgency lately but no dysuria/frequency. BSG have been high with the prednisone. Usually 120s. Lately 180s-200s with prednisone. Took her medications this morning except for hctz which she takes in the evening Medical History: Reviewed Medications: Reviewed Surgical History: Reviewed Allergies: Reviewed Social History: No tobacco product use, no alcohol use. No recreational drug use. Code Status: Surrogate DM Tone. Conditional Code, compressions no intubation. Discussed w/ patient. Allergies Allergy/AdvReac Type Severity Reaction Status Date / Time acetaminophen Allergy Unknown Verified 12/25/21 12:54 benzonatate Allergy Unknown UNKNOWN Verified 12/25/21 12:54 cephalexin [From Keflex] Allergy Unknown Verified 12/25/21 12:54 glimepiride Allergy Unknown Verified 12/25/21 12:54 methotrexate Allergy Unknown Verified 12/25/21 12:54 oxaprozin Allergy Unknown UNKNOWN Verified 12/25/21 12:54 propoxyphene AdvReac Intermediate nausea/vomi Verified 12/25/21 12:54 ting Home Medications Medication Instructions Recorded Confirmed Type amitriptyline 25 mg tablet 25 mg PO DAILY 01/31/19 12/25/21 History atorvastatin 10 mg tablet 10 mg PO DAILY #30 tabs 01/31/19 12/25/21 History blood sugar diagnostic (Contour #10 ea 01/31/19 12/25/21 History Next Test Strips) febuxostat 80 mg tablet 80 mg PO DAILY 01/31/19 12/25/21 History gabapentin 300 mg capsule 300 mg PO QID 01/31/19 12/25/21 History hydroxychloroquine 200 mg tablet 200 mg PO DAILY #90 tabs 01/31/19 12/25/21 History valsartan 80 1 tab PO DAILY 01/31/19 12/25/21 History mg-hydrochlorothiazide 12.5 mg tablet pantoprazole 20 mg tablet,delayed 40 mg PO DAILY 05/30/19 12/25/21 History release tramadol 50 mg tablet 50 mg PO Q6H PRN 05/30/19 12/25/21 History fluticasone furoate 200 See Rx Instructions inhalation 01/02/20 12/25/21 Rx mcg-vilanterol 25 mcg/dose Q24H #90 ea inhalation powder (Breo Ellipta) ergocalciferol (vitamin D2) 1,250 50,000 unit PO .COMPLEX #12 caps 11/15/20 12/25/21 Rx mcg (50,000 unit) capsule insulin aspart U-100 100 unit/mL 8 unit subcut BID 05/30/21 12/25/21 History subcutaneous solution insulin detemir U-100 100 unit/mL 30 unit subcut DAILY 05/30/21 12/25/21 History subcutaneous solution Flutter Valve #1 ea 12/17/21 12/25/21 Rx nebulizer accessories #1 ea 12/17/21 12/25/21 Rx nebulizer and compressor #1 ea 12/17/21 12/25/21 Rx prednisone 10 mg tablet 30 mg PO DAILY #90 tabs 12/17/21 12/25/21 Rx ipratropium 0.5 mg-albuterol 3 mg 3 ml inhalation BID wheezing #180 12/19/21 12/25/21 Rx (2.5 mg base)/3 mL nebulization mL soln Past Med/Surg History Medical History Acute dyspnea Chronic hypoxemic respiratory failure Chronic kidney disease, stage III (moderate) History of endometriosis History of influenza History of osteopenia History of parotitis Hyperparathyroidism Hypertension Hyponatremia Left knee pain GUY (obstructive sleep apnea) Pulmonary hypertension Pulmonary sarcoidosis Restrictive lung disease Sinus tachycardia Surgical History History of tonsillectomy History of total abdominal hysterectomy Family History Unknown Breast cancer Colorectal cancer Bladder cancer Mother Thyroid disorder Father Coronary heart disease Diabetes Kidney disease Social History Smoking Status: Never smoker Preferred Language: Togolese Feels Safe at Home: Yes Review of Systems Review of Systems: All systems reviewed & are unremarkable except as noted in Subjective Physical Exam Physical Exam: General: A&Ox3. NAD. Cooperative. HEENT: Atraumatic, normocephalic. Pupils equal and reactive to light. Vision and hearing grossly intact Pulm: high-pitched and inspiratory wheeze, no expiratory wheeze, no rales /rhonchi. symmetrical chest rise. No increased work of breathing. No respiratory distress. Cardiac: Regular, tachycardic, -mrg. Radial pulses intact and symmetrical. Abdominal: Nontender, nondistended, soft. BS present. Results & Data Results & Data ([facility]) Vital Signs (Past 12 Hours) Vital Signs Temp Pulse Pulse Resp BP BP Pulse Ox 01/26/22 16:47 92 H 20 127/81 98 01/26/22 13:36 36.4 C L 114 H 22 98/61 L 96 O2 Del Method O2 Flow Rate 01/26/22 16:47 Nasal Cannula 4 01/26/22 13:36 Nasal Cannula 4 Code Status & VTE Plan VTE Prophylaxis Plan VTE Prophylaxis will be ordered: Yes PG Care Time/CCT Total # of Minutes Spent Total Time Spent with Patient: Total time spent is greater than 50% in coordination of care (as documented) at patient's floor/unit and/or counseling patient: Coding Level of Care Code 51519 Initial Inpt Care Lvl 3 Diagnoses Acute dyspnea R06.00 Sinus tachycardia R00.0 Pulmonary hypertension I27.20 GUY (obstructive sleep apnea) G47.33 Pulmonary sarcoidosis D86.0 Hyperparathyroidism E21.3 Hypertension I10 Hyponatremia E87.1 Chronic kidney disease, stage III (moderate) N18.3 Diabetes E11.9
--- NOTE | 2022-01-26 20:55 | CT Scan Report ---
CT SCAN OF THE CHEST WITHOUT IV CONTRAST CLINICAL HISTORY: Dyspnea. Reported history of sarcoidosis. COMPARISON STUDY: Chest CT scans dated 12/12/2019 and 06/13/2016. TECHNIQUE: CT scan of the thorax was performed from the thoracic inlet to the upper abdomen. Images are reviewed in the axial, sagittal, and coronal planes. IV contrast was not administered for this ex amination as per the referring clinician. A dose lowering technique was utilized adhering to the fazal Karsten. CT DOSE: 387.33 mGy.cm FINDINGS: Thyroid: The thyroid gland is mildly enlarged and heterogeneous. A coarse calcification is noted in t he right lobe. Thoracic aorta: The thoracic aorta is normal in caliber and demonstrates standard 3-vessel arch anato my. Heart: The heart is top normal in size and without pericardial effusion. The coronary arteries are de nsely calcified. The pulmonary trunk is dilated measuring 4.5 cm in transverse diameter. This indicat es pulmonary artery hypertension. Lungs and pleural spaces: There is subpleural reticulation with a lower lobe predominance. There is i ntralobular septal thickening with regions of fibrosis unremarkable scarring seen at the lung bases. Fibrosis is also seen in the perihilar regions, with additional foci identified in the upper lobes. T he trachea and central airways are clear. Mild bronchiectasis is again seen in the lower lobes. No ho neycombing is identified. There is increased groundglass change at both lung bases from prior studies . No pleural effusion is seen. Foci of air trapping are suggested at both lung bases and the left ape x. A 5 mm left upper lobe nodule on image #92 is unchanged from 2017. Scattered calcified granulomas are observed. Mediastinum: There are numerous calcification containing mediastinal lymph nodes. No pathologically e nlarged lymph nodes are seen. Nicolasa: There are calcification containing hilar nodes. Note that the nicolasa are not well assessed withou t IV contrast. Axillae: There is no axillary lymphadenopathy. Upper abdomen: There is a small hiatal hernia. Calcified gallstones are partially visualized. Imaged portions of the kidneys demonstrate cortical atrophy. Skeletal structures: The skeletal structures are osteopenic. Degenerative change and hyperkyphosis ar e noted in the thoracic spine. No lytic or blastic bony lesions are seen. IMPRESSION: 1. Changes of fibrotic lung disease as above with associated traction bronchiectasis and air trapping . This appears somewhat progressive as compared to 12/12/2019 and could be seen with the reported clini mario alberto diagnosis of sarcoidosis. Chronic interstitial lung disease could appear similar. 2. There is groundglass change present at both lung bases. This could be related to progressive inter stitial lung disease. Correlate clinically for evidence of a superimposed infectious/inflammatory pne umonitis. 3. Calcified mediastinal and hilar lymph nodes are similar to previous. 4. Mild cardiac enlargement with evidence of pulmonary artery hypertension. 5. Additional findings as above. ACT 112: Negative or not required by law. Electronically signed by: Jeremie Aaron M.D. 01/26/2022 8:53 PM
[2022-01-26] MEDS ORDERED: GLUCOSE 10 TAB/TUBE PO PRN (22:59)
[2022-01-26] MEDS ORDERED: ACETAMINOPHEN 325 MG TAB PO PRN (22:59)
[2022-01-26] MEDS ORDERED: GLUCOSE 40% GEL 15 GM TUBE PO PRN (22:59)
[2022-01-26] MEDS ORDERED: DEXTROSE 50% 50 ML SYRINGE IV PRN (22:59)
[2022-01-26] MEDS ORDERED: PHARMACY GLYCEMIC MGMT CONSULT PRN (22:59)
[2022-01-26] MEDS ORDERED: CARBOHYDRATES FOR HYPOGLYCEMIA PO PRN (22:59)
[2022-01-26] MEDS ORDERED: POLYETHYLENE (MIRALAX) 17 GM PACK PO PRN (22:59)
[2022-01-26] MEDS ORDERED: GLUCAGON FOR INJ 1 MG VIAL SQ PRN (22:59)
[2022-01-27] MEDS: GABAPENTIN 300 MG CAP PO SCH ×5 (00:14→20:31)
[2022-01-27] MEDS: HEPARIN SOD 5,000 UNIT/0.5 ML VIAL SQ SCH (00:14)
[2022-01-27] MEDS: traMADol HCL 50 MG TABLET PO PRN (00:16)
[2022-01-27] MEDS: INSULIN ASPART PER UNIT SC SCH ×5 (00:16→20:30)
[2022-01-27 03:18] LABS: Basophils # (auto) 0.03 K/uL (0-0.2); Basophils % (auto) 0.3 %; Eosinophils # (auto) 0.07 K/uL (0-0.50); Eosinophils % (auto) 0.8 %; Hematocrit (blood only) 33.7 % (34.1-44.9); Hemoglobin 11.1 g/dl (12.0-16.0); Immature Granulocytes # (auto) 0.07 K/uL (0.00-0.02); Immature Granulocytes % (auto) 0.8 %; Lymphocytes # (auto) 0.64 K/uL (1.2-3.4); Lymphocytes % (auto) 7.1 %; Mean Corpuscular Hemoglobin 26.6 pg (25.0-34.0); Mean Corpuscular Hgb Conc 32.9 g/dL (32.0-36.0); Mean Corpuscular Volume 80.6 fL (80.0-100.0); Mean Platelet Volume 9.3 fL (9.4-12.3); Monocytes # (auto) 0.69 K/uL (0.24-0.82); Monocytes % (auto) 7.6 %; Neutrophils # (auto) 7.52 K/uL (1.4-6.5); Neutrophils % (auto) 83.4 %; Platelet Count 179 K/uL (130-400); RDW Coefficient of Variation 15.1 % (11.5-14.5); RDW Standard Deviation 44.1 fL (36.4-46.3); Red Blood Count 4.18 M/uL (3.93-5.22); White Blood Count 9.02 K/ul (4.8-10.8)
[2022-01-27 03:37] LABS: BUN Creatinine Ratio 16.7 (10-20); Calcium 8.9 mg/dl (8.5-10.1); Creatinine Clr Calc Pharmacy 30.5 ml/min; Est GFR (African American) 35.1 ml/min; Est GFR (Non-African American) 30.2 ml/min; Potassium 4.6 mmol/L (3.5-5.1)
--- NOTE | 2022-01-27 07:23 | Pulmonary Consultation ---
Date of Consultation January 27, 2022 Assessment & Plan (1) Acute on chronic respiratory failure with hypoxemia: (2) GUY (obstructive sleep apnea): (3) Hyperparathyroidism: (4) Pulmonary hypertension: (5) Pulmonary sarcoidosis: (6) Restrictive lung disease: (7) Rheumatoid arthritis: Plan CT chest 01/26/2022 personally reviewed: Fibrotic changes appreciated bilateral upper lobes Traction bronchiectasis bilateral lower lobes Diffuse groundglass opacities appreciated upper and lower lobes especially in the lower lobes Calcified mediastinal lymph nodes with no mediastinal lymphadenopathy -- Acute on chronic hypoxic failure Multifactorial CT chest shows traction bronchiectasis as well as groundglass opacities appreciated bilateral lower lobes which is new compared to HRCT 12/30/21 This could be progression of patient's underlying sarcoidosis/ILD. Infectious process/pneumonitis can present similarly. Patient was given prednisone prolonged taper recently. PJP could present in the same way along with pulmonary edema Influenza A/B, COVID-19 PCR, RSV negative Procalcitonin 0.28 AST/ALT/bilirubin/calcium within normal limit. Alk phos chronically elevated -- Rheumatoid arthritis On Plaquenil Likely has also been found to be beneficial in dermatological sarcoidosis with hypercalcemia --GUY Continue with CPAP --Pulmonary hypertension Likely combination of type II and type III --Restrictive lung disease Severe TLC 54%, FVC 37%, DLCO 25% predicted From underlying sarcoidosis Plan: Follow BNP, beta D glucan, ESR, CRP Keep the patient n.p.o. for possible bronchoscopy. Patient will be very high risk for intubation given the severe restrictive lung disease, GUY as well as pulmonary hypertension DC prednisone. Give Solu-Medrol 40 mg every 12 Risk and benefit of the procedure were explained to the patient in depth She understands and is agreeable to do the procedure. Please note the above document was generated using voice recognition software. It may contain grammatical, syntax or spelling errors.Any formal questions or concerns about the content, text or information contained within the body of this dictation should be directly addressed to the provider for clarification. History of Present Illness Attending Physician: Clint Andujar MD History of Present Illness 71-year-old female present to the hospital with worsening shortness of breath Past medical history: Rheumatoid arthritis on Plaquenil, pulmonary sarcoidosis, GUY on CPAP, hyperparathyroidism, hyponatremia, chronic hypoxic respiratory fail ure Pulmonary consulted for worsening shortness of breath with underlying history of sarcoidosis Patient follows up with Dr. Benjamin as an outpatient. On her last visit with him she was given prolonged prednisone taper prednisone taper Autoimmune work-up was negative for everything on 11/06/2019 At the time of examination patient was saturating 90% on 6 L nasal cannula. She has been having issues with her breathing for approximately a month. She finished a course of prednisone 30 mg for 10 days then 20 for 10 then 10 for 10 and then 5 for 10. Denies any night sweats, no unintentional weight loss No recent travel history No new pets at home. No birds or poultry nearby. She is usually on 2 L oxygen at home.3 Denies any headache or blurry vision No fever or chills No chest tightness, denies any cough. No hemoptysis. Allergies Allergy/AdvReac Type Severity Reaction Status Date / Time benzonatate Allergy Unknown UNKNOWN Verified 12/25/21 12:54 cephalexin [From Keflex] Allergy Unknown Unknown Verified 01/27/22 09:10 glimepiride Allergy Unknown Unknown Verified 01/27/22 09:10 methotrexate Allergy Unknown Unknown Verified 01/27/22 09:10 oxaprozin Allergy Unknown UNKNOWN Verified 12/25/21 12:54 propoxyphene AdvReac Intermediate nausea/vomi Verified 12/25/21 12:54 ting Home Medications Medication Instructions Recorded Confirmed Type amitriptyline 25 mg tablet 25 mg PO DAILY 01/31/19 01/26/22 History atorvastatin 10 mg tablet 10 mg PO DAILY #30 tabs 01/31/19 01/26/22 History blood sugar diagnostic (Contour #10 ea 01/31/19 12/25/21 History Next Test Strips) febuxostat 80 mg tablet 80 mg PO DAILY 01/31/19 01/26/22 History gabapentin 300 mg capsule 300 mg PO QID 01/31/19 01/26/22 History hydroxychloroquine 200 mg tablet 200 mg PO DAILY #90 tabs 01/31/19 01/26/22 History valsartan 80 1 tab PO DAILY 01/31/19 01/26/22 History mg-hydrochlorothiazide 12.5 mg tablet pantoprazole 20 mg tablet,delayed 40 mg PO DAILY 05/30/19 01/26/22 History release tramadol 50 mg tablet 50 mg PO Q6H PRN Pain 05/30/19 01/26/22 History ergocalciferol (vitamin D2) 1,250 50,000 unit PO .COMPLEX #12 caps 11/15/20 01/26/22 Rx mcg (50,000 unit) capsule insulin aspart U-100 100 unit/mL 8 unit subcut BID 05/30/21 01/26/22 History subcutaneous solution insulin detemir U-100 100 unit/mL 30 unit subcut QAM 05/30/21 01/26/22 History subcutaneous solution Flutter Valve #1 ea 12/17/21 12/25/21 Rx nebulizer accessories #1 ea 12/17/21 12/25/21 Rx nebulizer and compressor #1 ea 12/17/21 12/25/21 Rx prednisone 10 mg tablet 30 mg PO DAILY #90 tabs 12/17/21 01/26/22 Rx ipratropium 0.5 mg-albuterol 3 mg 3 ml inhalation BID wheezing #180 12/19/21 01/26/22 Rx (2.5 mg base)/3 mL nebulization mL soln fluticasone furoate 200 1 inh inhalation Q24H 01/26/22 01/26/22 History mcg-vilanterol 25 mcg/dose inhalation powder (Breo Ellipta) Patient History Medical History Acute dyspnea Chronic hypoxemic respiratory failure Chronic kidney disease, stage III (moderate) History of endometriosis History of influenza History of osteopenia History of parotitis Hyperparathyroidism Hypertension Hyponatremia Left knee pain GUY (obstructive sleep apnea) Pulmonary hypertension Pulmonary sarcoidosis Restrictive lung disease Sinus tachycardia Surgical History History of tonsillectomy History of total abdominal hysterectomy Family History Unknown Breast cancer Colorectal cancer Bladder cancer Mother Thyroid disorder Father Coronary heart disease Diabetes Kidney disease Social History Smoking Status: Never smoker Second Hand Exposure: No; Hx Alcohol Use: No Hx Substance Use: No Preferred Language: Greenlandic Communication Ability: Effective Economics Professor Required: No Beliefs That Will Affect Care: None Current Living Situation: Spouse Current Living Situation Comment: Lives with Feels Safe at Home: Yes Assistive Devices: Brace/Splint/Immobilizer, Cane, CPAP, Denture - Lower, Glas ses, Oxygen - Continuous and Walker Review of Systems Review of Systems: All systems reviewed & are unremarkable except as noted in HPI & below Physical Exam Physical Exam: Constitutional: No acute distress HEENT: EOMI, PERRLA Respiratory system: Decreased air entry bilaterally, no wheeze, no rhonchi, positive crackles bilateral lower lobes CVS: S1-S2 positive, no murmurs or gallops, tachycardia Abdomen: Soft, nontender, nondistended, positive bowel sounds x4 Extremities: +2 pulses bilaterally radialis/ dorsalis pedis, no cyanosis, no edema Neuro: Awake alert oriented x3 Psych: Normal mood and affect G/U: No Diaz Skin: no rashes, warm and dry Lymphatic: no cervical or axillary lymphadenopathy Results & Data Results & Data ([facility]) Vital Signs (Past 12 Hours) Vital Signs Temp Pulse Pulse Resp BP Pulse Ox O2 Del Method 01/27/22 07:10 94 H 01/27/22 03:53 100 H 23 91 01/27/22 03:00 36.7 C 98 H 20 121/77 92 CPAP 01/26/22 23:45 96 H 19 91 01/27/22 00:00 122 H 01/26/22 23:00 Nasal Cannula 01/26/22 23:00 37 C 95 H 22 148/81 H 91 Nasal Cannula 01/26/22 21:53 90 Nasal Cannula 01/26/22 22:13 24 145/72 H 01/26/22 19:32 99 Nasal Cannula 01/26/22 19:30 98 H 24 117/75 98 Nasal Cannula O2 Flow Rate 01/27/22 07:10 01/27/22 03:53 6 01/27/22 03:00 01/26/22 23:45 6 01/27/22 00:00 01/26/22 23:00 6 01/26/22 23:00 6 01/26/22 21:53 4 01/26/22 22:13 01/26/22 19:32 5 01/26/22 19:30 5 Laboratory Results 01/27/22 02:49 01/27/22 02:49 PG Care Time/CCT Total # of Minutes Spent Total Time Spent with Patient: Total time spent is greater than 50% in coordination of care (as documented) at patient's floor/unit and/or counseling patient: Coding Level of Care Code 21117 Initial Inpt Care Lvl 3 Diagnoses Acute on chronic respiratory failure with hypoxemia J96.21 GUY (obstructive sleep apnea) G47.33 Hyperparathyroidism E21.3 Pulmonary hypertension I27.20 Pulmonary sarcoidosis D86.0 Restrictive lung disease J98.4 Rheumatoid arthritis M06.9
[2022-01-27] MEDS: AMITRIPTYLINE HCL 25 MG TAB PO SCH (07:49)
[2022-01-27] MEDS: FLUTICASONE/VILANTEROL 200/25MCG 14 PUFFS/INHALER INH SCH (07:49)
[2022-01-27] MEDS: ATORVASTATIN 10 MG TAB PO SCH (07:49)
[2022-01-27] MEDS: PANTOprazole 40 MG TAB PO SCH (07:50)
[2022-01-27] MEDS: HYDROXYCHLOROQUINE SULFATE 200 MG TAB PO SCH (07:50)
[2022-01-27] MEDS: methylPREDNISolone 40 MG in SYRINGE 0 ML IV SCH ×2 (08:17→20:34)
[2022-01-27 08:31] LABS: C Reactive Protein 29.75 mg/dl (0-0.5)
--- NOTE | 2022-01-27 08:48 | Hospitalist Progress Note ---
Date of Service January 27, 2022 Assessment & Plan (1) Acute dyspnea: Plan: Worsening shortness of breath, history of pulmonary sarcoid on prednisone wean Acute on chronic respiratory failure with hypoxia Patient was on prednisone taper starting 12/17/2021, 30 mg for 10 days and tapering by 10 mg every 10days to 10 mg, then 5 mg for 10 days before stopping Chronic 2 L oxygen requirement now needing up to 6 L GUY: Continue CPAP with attempts to have supplemental oxygen NC as able - HR-CT-Chest 12/30/21: 1. Findings of interstitial/fibrotic lung disease with a lower lobe predominance as detailed above. This is similar to the 12/12/2019 examination and may be related to the reported history of sarcoidosis.2. There are calcified mediastinal and hilar lymph nodes.3. There is no evidence of superimposed airspace consolidation or pleural effusion.4. Cardiomegaly with evidence of pulmonary artery hypertension.5. Cholelithiasis.6. Additional findings as above. Tachycardia Thought to be reactive to chronic hypoxic respiratory failure and poor compliance with oxygen treatment TTE: Preserved ejection fraction mild to moderate AI and 1 diastolic dysfunction mildly reduced right heart function by TAPSE - CT-C repeat: interstitial and ground glass changes infectious vs inflammatory (sarcoid) lung disease, on steroids and testing for PJP - consult pulmonology, endoscopy performed on 01/27. Friable mucosa was seen recommending PJP treatment preliminarily until results of testing returned maintained on intravenous steroids Elevated troponin Suspect demand, no EKG changes. No chest pain on assessment. Trend 2-hour and every 6 hours Hypertension Continue to hold valsartan/HCTZ for creatinine elevation Chronic kidney disease stage III likely from hypertension GERD Continue Protonix Hyperlipidemia Continue statin Type II DM On insulin 8 units twice daily, detemir 30 units daily [employer] Will convert to basal/bolus with Lantus while inpatient Goal BSG [id number], SSI Glucose checks AC/at bedtime Insomina - Continue [employer] amitryptaline DVT PPx: SCDs, heparin Dispo: [facility]Ed [facility] for cardiac eval Diet; T2DM/HH CODE STATUS: Conditional, no intubation (2) Sinus tachycardia: (3) Pulmonary hypertension: (4) GUY (obstructive sleep apnea): (5) Pulmonary sarcoidosis: (6) Hyperparathyroidism: (7) Hypertension: (8) Hyponatremia: (9) Chronic kidney disease, stage III (moderate): (10) Diabetes: Admission and Anticipated Discharge Date Admission Date: January 26, 2022 Subjective pt was seen after bronchoscopy, did have friable mucosa seen, samples sent and started on Bactrim high dose while we await her pjp tests to result Review of Systems Review of Systems: Mild distress and fatigue no headache, no visual changes no speech or swallowing issues no chest pain, pressure or palpitations Patient is obviously dyspneic she has a coarse cough no abdominal pain, nausea or vomiting, diarrhea or constipation no dysuria, hematuria or frequency no focal joint pain or swelling no back pain, CVA tenderness or radicular pain no bruising, bleeding or rashes no focal signs of weakness or numbness or altered sensation no complaints of anxiety or depression.. Physical Exam Physical Exam: The patient appeared well nourished and normally developed. Vital signs as documented. Head exam is normocephalic atraumatic Neck is without JVD, thyromegaly, or carotid bruits. Lungs patient has increased respiratory effort coarse breath sounds are heard in bilateral lung valerio with a raspy coarse cough Cardiac exam, Rhythm is regular.. No murmurs, rubs or gallops. Abdominal exam reveals normal bowel sounds, soft non tender, no masses Extremities are nonedematous and both pedal pulses are present Neurologic exam is alert and oriented, no focal loss of strength or sensation Skin is without bruises or rashes Psychologically is without concerns for anxiety or depression.. Results & Data Results & Data ([facility]) Vital Signs (Past 12 Hours) Vital Signs Temp Pulse Pulse Resp BP BP Pulse Ox 01/27/22 07:27 99.5 F 117 H 24 164/81 H 88 L 01/27/22 07:10 94 H 01/27/22 03:53 100 H 23 91 01/27/22 03:00 98.1 F 98 H 20 121/77 92 01/26/22 23:45 96 H 19 91 01/27/22 00:00 122 H 01/26/22 23:00 01/26/22 23:00 98.6 F 95 H 22 148/81 H 91 01/26/22 21:53 90 01/26/22 22:13 24 145/72 H O2 Del Method O2 Flow Rate 01/27/22 07:27 Nasal Cannula 6 01/27/22 07:10 01/27/22 03:53 6 01/27/22 03:00 CPAP 01/26/22 23:45 6 01/27/22 00:00 01/26/22 23:00 Nasal Cannula 6 01/26/22 23:00 Nasal Cannula 6 01/26/22 21:53 Nasal Cannula 4 01/26/22 22:13 PG Care Time/CCT Total # of Minutes Spent Total Time Spent with Patient: Total time spent is greater than 50% in coordination of care (as documented) at patient's floor/unit and/or counseling patient: Coding Level of Care Code 41131 Subseq Hosp Care Lvl 3 Diagnoses Acute dyspnea R06.00 Sinus tachycardia R00.0 Pulmonary hypertension I27.20 GUY (obstructive sleep apnea) G47.33 Pulmonary sarcoidosis D86.0 Hyperparathyroidism E21.3 Hypertension I10 Hyponatremia E87.1 Chronic kidney disease, stage III (moderate) N18.3 Diabetes E11.9
[2022-01-27] MEDS ORDERED: predniSONE 20 MG TAB PO SCH (09:00)
[2022-01-27] MEDS ORDERED: LANTUS PER UNIT CHARGE SQ SCH ×3 (09:00→21:00)
[2022-01-27 09:44] LABS: Troponin I High Sensitivity 26.3 pg/ml (0-14)
[2022-01-27] MEDS ORDERED: fentaNYL citrate 100 MCG/2 ML VIAL ONE ×2 (10:45→11:04)
[2022-01-27] MEDS ORDERED: MIDAZOLAM HCL 1 MG/ML 2ML VIAL ONE ×2 (10:46→11:07)
--- NOTE | 2022-01-27 11:45 | Procedure Note ---
Procedure Note: Bronchoscopy Procedure PREOPERATIVE DIAGNOSIS: Diffuse bilateral opacities POSTOPERATIVE DIAGNOSIS: Diffuse bilateral opacities PROCEDURE PERFORMED: Flexible fiberoptic bronchoscopy with bronchoalveolar lavage COMPLICATIONS: None. INDICATION: Rule out infection PROCEDURE: After obtaining an informed consent, the patient was brought to the ICU. The patient had appropriate oxygen, blood pressure, heart rate, and respiratory rate monitoring applied and monitored continuously throughout the procedure. Supplemental oxygen via nasal cannula as per nursing records was applied to the nasopharynx with adequate saturations achieved. Topical anesthesia with nebulized 1% lidocaine was achieved. Subsequent to this, the patient was premedicated with 4 mg of midazolam and 125 mcg of fentanyl. Upper Airway: The oropharynx and larynx were well visualized and showed mild edema and dry mucosa. There was normal vocal cord motion without masses or lesions. Additional topical anesthesia with 1% lidocaine was applied to the trachea and russel. Clear whitish-de los santos secretions were appreciated at the vallecula. The trachea was tortuous but appeared normal.The bronchoscope was then advanced through the russel, which was sharp. The scope was then advanced into the right main stem and each segment, subsegement in the right upper lobe, right middle lobe and right lower lobe were visualized. There was minimal amount of clear secretion which were suctioned out. There were no other findings including evidence of mass, anatomic distortions, or hemorrhage. The bronchoscope was subsequently withdrawn and advanced into the left mainstem. Again, each segment and subsegment was well visualized. No specific masses or other lesions were identified throughout the tracheobronchial tree on the left. There were minimal amount of clear secretion which were suctioned out. Please make note that the mucosa was very friable. The bronchoscope was then wedged in the right lower lobe anterior segment and bronchoalveolar lavage samples were obtained. 60 ml of saline was instilled and 30 ml of fluid was aspirated back.The bronchoscope was withdrawn and the area was suctioned clear. The bronchoscope was then wedged in the left lower lobe lateral segment and bronchoalveolar lavage samples were obtained. 60 mL saline was instilled and 30 mL of fluid was aspirated back. The bronchoscope was withdrawn and the area was suctioned clear. The bronchoscope was then withdrawn to the mainstem. The area was suctioned clear. The bronchoscope was then withdrawn. The patient tolerated the procedure well without evidence of desaturation or complications. Bronchoalveolar lavage samples were sent for cell count, Gram stain and bacterial culture, AFB culture and smear, fungal culture and smear and cytology. PJP PCR was also sent Recommendations: Follow-up chest x-ray Follow-up micro and cytology Please note the above document was generated using voice recognition software. It may contain grammatical, syntax or spelling errors.Any formal questions or concerns about the content, text or information contained within the body of this dictation should be directly addressed to the provider for clarification. [facility] [place] Procedure Codes (Charges) Pulmonary/Thoracic Procedure 1: Pulmonary and Thoracic: 76287 Dx bronchoscopy/BAL Sedation/Anesthesia Procedure 1: Sedation/Anesthesia: 33241 Mod Sedation by the same physician;Init15 Min Child Age 5 & Up
[2022-01-27] MEDS ORDERED: MIDAZOLAM HCL 5 MG/ML 1 ML VIAL IV STA (12:02)
[2022-01-27] MEDS ORDERED: fentaNYL citrate 100 MCG/2 ML VIAL IV STA (12:03)
--- NOTE | 2022-01-27 12:08 | XRay Report ---
XR chest 1V portable CLINICAL HISTORY: Post Bronchoscopy TECHNIQUE: Single frontal radiograph of the chest was obtained. Comparison: Comparison is made to chest radiograph 01/26/[address] chest 01/26/2022 FINDINGS: No lines and tubes are seen. The cardiomediastinal silhouette is stable. Reticular interstitial opaci ties are seen. Redemonstration of hilar prominence. No evidence of pleural effusion or pneumothorax. IMPRESSION: Interstitial lung disease, compatible with history of sarcoidosis, without evidence of airspace opaci ties. Stable cardiomegaly. Hilar prominence may represent pulmonary hypertension or be a central/lisset r lymphadenopathy. ACT 112: Negative or not required by law. Electronically signed by: Keith Gonsales M.D. 01/27/2022 12:07 PM
[2022-01-27] MEDS ORDERED: SODIUM CHLORIDE 0.9% 1000ML 500 ML IV SCH (12:15)
--- NOTE | 2022-01-27 12:51 | Pharmacy Report ---
Pharmacy Glycemic Short Note 2 - Date of Service January 27, 2022 - Glycemic Short BSG Results (Last 24 hours): 01/26/22 01/26/22 01/27/22 14:55 22:30 02:49 Glucose 289 H 159 H POC Glucose 171 H 01/27/22 01/27/22 07:50 12:09 Glucose POC Glucose 163 H 157 H OUTPATIENT ANTIDIABETIC REGIMEN: * Levemir 30 units SC daily * Novolog 8 units SC BIDM HbA1c: 6.8% (12/22/21) ASSESSMENT: * TC is a 71 year old female who presented to ED yesterday with worsening shortness of breath * patient has history of restrictive lung disease from underlying sarcoidosis, currently on prednisone taper as outpatient * S/p bronchoscopy this morning - currently NPO * Steroids changed from prednisone to methylprednisolone 40 mg IV BID today * BSGs reasonably controlled at this time, will plan on ~weight-based stress of 2 dosing at this time PLAN FOR INPATIENT GLYCEMIC CONTROL: * Basal insulin * Lantus 15 units SC daily * Lantus HS to provide 0-5 units (see EHR for details) * Bolus insulin * NovoLog per scale ACHS or Q6hrs while NPO * Goal Range: Low 110 mg/dL - High 140 mg/dL * Correction Factor: 35 mg/dL/unit * Nutritional / Prandial insulin per carb ratio of 1 unit per 11 grams CHO consumed
[2022-01-27 13:57] LABS: Eosinophil Body Fluid Man 0 %; Fluid Mono/Macrophage 15 %; Lymphocyte Body Fluid Man 8 %; Neutrophil Body Fluid Man 77 %
[2022-01-27] MEDS: SULFAMETHOXAZOLE/TRIMETHOPRIM DS 800/160MG TAB PO SCH ×2 (15:13→22:17)
--- NOTE | 2022-01-27 15:56 | Electrocardiogram Report ---
Test Reason : Blood Pressure : / mmHG Vent. Rate : 104 BPM Atrial Rate : 104 BPM P-R Int : 136 ms QRS Dur : 084 ms QT Int : 330 ms P-R-T Axes : 032 002 023 degrees QTc Int : 433 ms Poor data quality, interpretation may be adversely affected Sinus tachycardia Anterior T abnormalities Otherwise normal ECG When compared with ECG of 16-SEP-2015 11:36, Nonspecific T wave abnormality now evident in Anterior leads Confirmed by Juan A Cline ([id number]) on 01/27/2022 3:56:01 PM Referred By: Evaristo Solis Confirmed By:Juan A Cline
[2022-01-27] MEDS ORDERED: FUROSEMIDE INJ 20 MG/2 ML VIAL IV ONE (18:05)
[2022-01-28] MEDS: methylPREDNISolone 40 MG in SYRINGE 0 ML IV SCH ×2 (09:10→20:49)
[2022-01-28] MEDS: SULFAMETHOXAZOLE/TRIMETHOPRIM DS 800/160MG TAB PO SCH (09:10)
[2022-01-28] MEDS: AMITRIPTYLINE HCL 25 MG TAB PO SCH (09:10)
[2022-01-28] MEDS: HYDROXYCHLOROQUINE SULFATE 200 MG TAB PO SCH (09:11)
[2022-01-28] MEDS: ATORVASTATIN 10 MG TAB PO SCH (09:11)
[2022-01-28] MEDS: GABAPENTIN 300 MG CAP PO SCH ×4 (09:11→20:49)
[2022-01-28] MEDS: PANTOprazole 40 MG TAB PO SCH (09:11)
[2022-01-28] MEDS: FLUTICASONE/VILANTEROL 200/25MCG 14 PUFFS/INHALER INH SCH (09:12)
[2022-01-28] MEDS: INSULIN ASPART PER UNIT SC SCH ×4 (09:13→20:48)
[2022-01-28] MEDS: LANTUS PER UNIT CHARGE SQ SCH ×2 (09:23→20:49)
[2022-01-28 10:35] LABS: BUN Creatinine Ratio 23.8 (10-20); Calcium 9.3 mg/dl (8.5-10.1); Est GFR (African American) 34.1 ml/min; Est GFR (Non-African American) 29.4 ml/min; Potassium 3.7 mmol/L (3.5-5.1)
--- NOTE | 2022-01-28 10:49 | XRay Report ---
SINGLE VIEW CHEST CLINICAL HISTORY: Dyspnea. FINDINGS: An AP, portable, upright chest radiograph is compared to study dated 01/27/2022 and correlat ed with chest CT dated 01/26/2022. The cardiomediastinal silhouette is unremarkable. Changes of chroni c fibrotic lung disease are similar to previous. Bilateral superimposed airspace opacities are suspec t. No large pleural effusion or pneumothorax is seen. The skeletal structures are osteopenic. The bon y thorax is grossly intact. IMPRESSION: Findings of chronic fibrotic lung disease with probable superimposed airspace opacities h as not appreciably changed from yesterday. ACT 112: Negative or not required by law. Electronically signed by: Jeremie Aaron M.D. 01/28/2022 10:48 AM
[2022-01-28] MEDS ORDERED: FLUTICASONE/VILANTEROL 200/25MCG 14 PUFFS/INHALER INH SCH (11:05)
--- NOTE | 2022-01-28 11:36 | Pulmonology Progress Note ---
Date of Service January 28, 2022 Assessment & Plan (1) Acute on chronic respiratory failure with hypoxemia: (2) GUY (obstructive sleep apnea): (3) Pulmonary hypertension: (4) Pulmonary sarcoidosis: (5) Restrictive lung disease: (6) Rheumatoid arthritis: Plan CT chest 01/26/2022 personally reviewed: Fibrotic changes appreciated bilateral upper lobes Traction bronchiectasis bilateral lower lobes Diffuse groundglass opacities appreciated upper and lower lobes especially in the lower lobes Calcified mediastinal lymph nodes with no mediastinal lymphadenopathy -- Acute on chronic hypoxic failure Multifactorial CT chest shows traction bronchiectasis as well as groundglass opacities appreciated bilateral lower lobes which is new compared to HRCT 12/30/21 This could be progression of patient's underlying sarcoidosis/ILD. Infectious process/pneumonitis can present similarly. Patient was given prednisone prolonged taper recently. PJP could present in the same way along with pulmonary edema S/p bronchoscopy 01/27/2022. Neutrophilic with only 8% lymphocytes. Follow-up PJP PCR Continue with Bactrim for the time being. Influenza A/B, COVID-19 PCR, RSV negative Procalcitonin 0.28 ESR 96, LDH 331, CRP 29.75 BNP 160 AST/ALT/bilirubin/calcium within normal limit. Alk phos chronically elevated -- Rheumatoid arthritis On Plaquenil Likely has also been found to be beneficial in dermatological sarcoidosis with hypercalcemia --GUY Continue with CPAP --Pulmonary hypertension Likely combination of type II and type III --Restrictive lung disease Severe TLC 54%, FVC 37%, DLCO 25% predicted From underlying sarcoidosis --DNI Plan: Continue with Bactrim as if you are treating PJP Follow-up PJP PCR from the BAL Continue with steroids Continue with high flow and interchanged with BiPAP on an as-needed basis I did speak with patient's son as well as grandson at bedside as well. Overall prognosis of the patient is poor if we do not see any improvement in her oxygen requirement in the near future Please note the above document was generated using voice recognition software. It may contain grammatical, syntax or spelling errors.Any formal questions or concerns about the content, text or information contained within the body of this dictation should be directly addressed to the provider for clarification. Admission and Anticipated Discharge Date Admission Date: January 26, 2022 Subjective Patient seen and examined at bedside. I was called to evaluate the patient early in the morning as she was getting hypoxic on nonrebreather She did use BiPAP all night and tolerated well She complains of shortness of breath when she is off of BiPAP. No hemoptysis. No headache, no nausea, no vomiting Denies any chest pain Review of Systems Review of Systems: All systems reviewed & are unremarkable except as noted in Subjective Physical Exam Physical Exam: Constitutional: Respiratory distress HEENT: EOMI, PERRLA Respiratory system: Decreased air entry bilaterally, no wheeze, no rhonchi, positive crackles bilateral lower lobes CVS: S1-S2 positive, no murmurs or gallops, tachycardia Abdomen: Soft, nontender, nondistended, positive bowel sounds x4 Extremities: +2 pulses bilaterally radialis/ dorsalis pedis, no cyanosis, no edema Neuro: Awake alert oriented x3 Psych: Normal mood and affect G/U: No Diaz Skin: no rashes, warm and dry Lymphatic: no cervical or axillary lymphadenopathy Results & Data Results & Data ([facility]) Vital Signs (Past 12 Hours) Vital Signs Temp Pulse Pulse Pulse Resp BP BP 01/28/22 11:00 113 H 23 01/28/22 11:00 130/74 01/28/22 10:48 110 H 24 01/28/22 10:48 118/76 01/28/22 11:00 114 H 01/28/22 11:00 01/28/22 11:05 36.7 C 01/28/22 10:58 112 H 24 01/28/22 09:40 01/28/22 09:02 115 H 22 01/28/22 07:32 36.4 C L 87 20 125/77 01/28/22 07:25 84 01/28/22 04:07 98 H 18 147/82 H 01/28/22 02:30 93 H 18 Pulse Ox O2 Del Method O2 Flow Rate FiO2 01/28/22 11:00 90 01/28/22 11:00 01/28/22 10:48 86 L 01/28/22 10:48 01/28/22 11:00 01/28/22 11:00 High Flow Nasal Cannula 40 80 01/28/22 11:05 01/28/22 10:58 93 High Flow Nasal Cannula 40 80 01/28/22 09:40 High Flow Nasal Cannula 40 80 01/28/22 09:02 91 High Flow Nasal Cannula 40 80 01/28/22 07:32 90 CPAP 01/28/22 07:25 01/28/22 04:07 92 CPAP 01/28/22 02:30 95 50 Laboratory Results 01/27/22 02:49 01/28/22 09:59 PG Care Time/CCT Total # of Minutes Spent Total Time Spent with Patient: Total time spent is greater than 50% in coordination of care (as documented) at patient's floor/unit and/or counseling patient: Coding Level of Care Code 97894 Subseq Hosp Care Lvl 3 Diagnoses Acute on chronic respiratory failure with hypoxemia J96.21 GUY (obstructive sleep apnea) G47.33 Pulmonary hypertension I27.20 Pulmonary sarcoidosis D86.0 Restrictive lung disease J98.4 Rheumatoid arthritis M06.9
--- NOTE | 2022-01-28 13:32 | Pharmacy Report ---
Pharmacy Glycemic Short Note 2 - Date of Service January 28, 2022 - Glycemic Short BSG Results (Last 24 hours): 01/27/22 01/27/22 01/28/22 16:49 20:21 07:55 Glucose POC Glucose 147 H 177 H 151 H 01/28/22 01/28/22 09:59 12:25 Glucose 171 H POC Glucose 194 H OUTPATIENT ANTIDIABETIC REGIMEN: * Levemir 30 units SC daily * Novolog 8 units SC BIDM * HbA1c: 6.8% (12/22/21) ASSESSMENT: 01/28 * 29 units SQ administered in last 24 hrs. BSGs well controlled during this time. * Fasting BSG 151 this AM with 20 units basal on board. IV Solu-Medrol continues at same dose, diet advanced. Will titrated up basal slightly today. * Post-prandial BSGs to be evaluated with current Novolog CF/CR. Only small increases in dose at this time given pre-lunch elevation today w/ ongoing steroid therapy. 01/27 * TC is a 71 year old female who presented to ED yesterday with worsening shortness of breath * patient has history of restrictive lung disease from underlying sarcoidosis, currently on prednisone taper as outpatient * S/p bronchoscopy this morning - currently NPO * Steroids changed from prednisone to methylprednisolone 40 mg IV BID today * BSGs reasonably controlled at this time, will plan on ~weight-based stress of 2 dosing at this time PLAN FOR INPATIENT GLYCEMIC CONTROL: * Basal insulin * Lantus 15 units SC daily * Lantus HS to provide 0-5 units (see EHR for details) * Bolus insulin * NovoLog per scale ACHS or Q6hrs while NPO * Goal Range: Low 110 mg/dL - High 140 mg/dL * Correction Factor: 30 mg/dL/unit * Nutritional / Prandial insulin per carb ratio of 1 unit per 10 grams CHO consumed
[2022-01-28] MEDS: SULFA/TRIMETH 400/80MG TAB PO SCH ×2 (14:31→21:01)
[2022-01-28] MEDS: ALBUT/IPRATROP 3MG/0.5MG NEB 3 ML VIAL INH SCH (19:02)
[2022-01-28] MEDS: LORazepam 0.5 MG in SYRINGE 0.25 ML IV PRN (19:08)
--- NOTE | 2022-01-28 20:36 | Hospitalist Progress Note ---
Date of Service January 28, 2022 Assessment & Plan (1) Acute dyspnea: Plan: Worsening shortness of breath, history of pulmonary sarcoid on prednisone wean now on intravenous steroids Acute on chronic respiratory failure with hypoxia Escalation of need of oxygen support to high flow nasal cannula and required transition to higher level of care on 01/28/2022 -Patient after bronchoscopy performed on 01/27. Friable mucosa was seen recommending PJP treatment preliminarily until results of testing returned maintained on intravenoussteroids is now on high flow oxygen -initiated treatment for PJP awaiting results of testing - HR-CT-Chest 12/30/21: 1. Findings of interstitial/fibrotic lung disease with a lower lobe predominance as detailed above. This is similar to the 12/12/2019 examination and may be related to the reported history of sarcoidosis.2. There are calcified mediastinal and hilar lymph nodes.3. There is no evidence of superimposed airspace consolidation or pleural effusion.4. Cardiomegaly with evidence of pulmonary artery hypertension.5. Cholelithiasis.6. Additional findings as above. Tachycardia TTE: Preserved ejection fraction mild to moderate AI and 1 diastolic dysfunction mildly reduced right heart function by TAPSE - CT-C repeat: interstitial and ground glass changes infectious vs inflammatory (sarcoid) lung disease, on steroids and testing for PJP - Elevated troponin Suspect demand, no EKG changes. No chest pain on assessment. Trend 2-hour and every 6 hours Hypertension Continue to hold valsartan/HCTZ for creatinine elevation Chronic kidney disease stage III likely from hypertension GERD Continue Protonix Hyperlipidemia Continue statin Type II DM On insulin 8 units twice daily, detemir 30 units daily [employer] Will convert to basal/bolus with Lantus while inpatient Goal BSG 515130, SSI Glucose checks AC/at bedtime Insomnia - Continue G[employer] amitriptyline DVT PPx: SCDs, heparin Dispo: MEd Tele for cardiac eval Diet; T2DM/HH CODE STATUS: Conditional, no intubation (2) Sinus tachycardia: (3) Pulmonary hypertension: (4) GUY (obstructive sleep apnea): (5) Pulmonary sarcoidosis: (6) Hyperparathyroidism: (7) Hypertension: (8) Hyponatremia: (9) Chronic kidney disease, stage III (moderate): (10) Diabetes: Admission and Anticipated Discharge Date Admission Date: January 26, 2022 Subjective P patient was transition to high flow nasal cannula as she cannot maintain saturations on regular nasal cannula or nonrebreather. She did tolerate BiPAP at night however this morning she became tachypneic short of breath and hypoxic Review of Systems Review of Systems: Mild distress and fatigue no headache, no visual changes no speech or swallowing issues no chest pain, pressure or palpitations Patient is obviously dyspneic she has a coarse cough no abdominal pain, nausea or vomiting, diarrhea or constipation no dysuria, hematuria or frequency no focal joint pain or swelling no back pain, CVA tenderness or radicular pain no bruising, bleeding or rashes no focal signs of weakness or numbness or altered sensation no complaints of anxiety or depression.. Physical Exam Physical Exam: The patient appeared well nourished and normally developed. Vital signs as documented. Head exam is normocephalic atraumatic Neck is without JVD, thyromegaly, or carotid bruits. Lungs patient has increased respiratory effort coarse breath sounds are heard in bilateral lung valerio with a raspy coarse cough Cardiac exam, Rhythm is regular.. No murmurs, rubs or gallops. Abdominal exam reveals normal bowel sounds, soft non tender, no masses Extremities are nonedematous and both pedal pulses are present Neurologic exam is alert and oriented, no focal loss of strength or sensation Skin is without bruises or rashes Psychologically is without concerns for anxiety or depression.. Results & Data Results & Data ([facility]) Vital Signs (Past 12 Hours) Vital Signs Temp Pulse Pulse Pulse Resp BP Pulse Ox 01/28/22 19:02 122 H 30 H 92 01/28/22 15:09 111 H 20 92 01/28/22 11:00 113 H 23 90 01/28/22 11:00 130/74 01/28/22 10:48 110 H 24 86 L 01/28/22 10:48 118/76 01/28/22 11:00 114 H 01/28/22 11:00 01/28/22 11:05 98.1 F 01/28/22 10:58 112 H 24 93 01/28/22 09:40 01/28/22 09:02 115 H 22 91 O2 Del Method O2 Flow Rate FiO2 01/28/22 19:02 High Flow Nasal Cannula 40 90 01/28/22 15:09 High Flow Nasal Cannula 40 70 01/28/22 11:00 01/28/22 11:00 01/28/22 10:48 01/28/22 10:48 01/28/22 11:00 01/28/22 11:00 High Flow Nasal Cannula 40 80 01/28/22 11:05 01/28/22 10:58 High Flow Nasal Cannula 40 80 01/28/22 09:40 High Flow Nasal Cannula 40 80 01/28/22 09:02 High Flow Nasal Cannula 40 80 PG Care Time/CCT Total # of Minutes Spent Total Time Spent with Patient: Total time spent is greater than 50% in coordination of care (as documented) at patient's floor/unit and/or counseling patient: Coding Level of Care Code 87359 Subseq Hosp Care Lvl 3 Diagnoses Acute dyspnea R06.00 Sinus tachycardia R00.0 Pulmonary hypertension I27.20 GUY (obstructive sleep apnea) G47.33 Pulmonary sarcoidosis D86.0 Hyperparathyroidism E21.3 Hypertension I10 Hyponatremia E87.1 Chronic kidney disease, stage III (moderate) N18.3 Diabetes E11.9
[2022-01-28] MEDS: HEPARIN SOD 5,000 UNIT/0.5 ML VIAL SQ SCH (20:48)
[2022-01-28] MEDS ORDERED: LEVALBUTEROL HCL 0.63 MG/3 ML NEB NEB PRN (20:53)
[2022-01-28] MEDS ORDERED: INSULIN ASPART PER UNIT SQ SCH (21:00)
[2022-01-29] MEDS: LORazepam 0.5 MG in SYRINGE 0.25 ML IV PRN ×3 (05:24→20:17)
[2022-01-29] MEDS: SULFA/TRIMETH 400/80MG TAB PO SCH ×3 (05:24→20:21)
[2022-01-29 05:53] LABS: Creatinine Clr Calc Pharmacy 26.8 ml/min; Est GFR (African American) 33.8 ml/min; Est GFR (Non-African American) 29.2 ml/min
[2022-01-29] MEDS: traMADol HCL 50 MG TABLET PO PRN (07:08)
[2022-01-29] MEDS: ALBUT/IPRATROP 3MG/0.5MG NEB 3 ML VIAL INH SCH ×2 (07:27→14:41)
[2022-01-29] MEDS: INSULIN ASPART PER UNIT SC SCH ×4 (09:10→20:19)
[2022-01-29] MEDS: methylPREDNISolone 40 MG in SYRINGE 0 ML IV SCH ×3 (09:13→20:21)
[2022-01-29] MEDS: FLUTICASONE/VILANTEROL 200/25MCG 14 PUFFS/INHALER INH SCH (09:14)
[2022-01-29] MEDS: ATORVASTATIN 10 MG TAB PO SCH (09:14)
[2022-01-29] MEDS: AMITRIPTYLINE HCL 25 MG TAB PO SCH (09:14)
[2022-01-29] MEDS: HEPARIN SOD 5,000 UNIT/0.5 ML VIAL SQ SCH ×2 (09:26→20:19)
[2022-01-29] MEDS: HYDROXYCHLOROQUINE SULFATE 200 MG TAB PO SCH (09:27)
[2022-01-29] MEDS: hydroCHLOROthiazide 25 MG TAB PO SCH (09:27)
[2022-01-29] MEDS: LANTUS PER UNIT CHARGE SQ SCH ×2 (09:29→20:19)
[2022-01-29] MEDS: PANTOprazole 40 MG TAB PO SCH ×2 (09:30→20:20)
[2022-01-29] MEDS: VALSARTAN 80 MG TAB PO SCH (09:30)
[2022-01-29] MEDS: GABAPENTIN 300 MG CAP PO SCH ×4 (10:48→20:18)
--- NOTE | 2022-01-29 11:02 | XRay Report ---
XR chest 1V portable CLINICAL HISTORY: increased sob COMPARISON STUDY: Chest CT January 26, 2022. Chest radiograph April 29, 2022. FINDINGS: No pneumothorax or pleural effusion is noted. Cardiomediastinal silhouette is stable when a llowing for patient rotation. Underlying fibrotic change is better depicted on chest CT. Superimposed multifocal airspace opacities are similar to prior exam. IMPRESSION: No significant change in findings suggestive of pneumonia superimposed upon fibrotic jl nge. ACT 112: Negative or not required by law. Electronically signed by: Sergio Buitrago M.D. 01/29/2022 11:00 AM
--- NOTE | 2022-01-29 11:10 | Pulmonology Progress Note ---
Date of Service January 29, 2022 Assessment & Plan (1) Acute on chronic respiratory failure with hypoxemia: (2) GUY (obstructive sleep apnea): (3) Pulmonary hypertension: (4) Pulmonary sarcoidosis: (5) Restrictive lung disease: (6) Rheumatoid arthritis: Plan CT chest 01/26/2022 personally reviewed: Fibrotic changes appreciated bilateral upper lobes Traction bronchiectasis bilateral lower lobes Diffuse groundglass opacities appreciated upper and lower lobes especially in the lower lobes Calcified mediastinal lymph nodes with no mediastinal lymphadenopathy -- Acute on chronic hypoxic failure Multifactorial CT chest shows traction bronchiectasis as well as groundglass opacities appreciated bilateral lower lobes which is new compared to HRCT 12/30/21 This could be progression of patient's underlying sarcoidosis/ILD. Infectious process/pneumonitis can present similarly. Patient was given prednisone prolonged taper recently. PJP could present in the same way along with pulmonary edema S/p bronchoscopy 01/27/2022. Neutrophilic with only 8% lymphocytes. Follow-up PJP PCR Continue with Bactrim for the time being. Influenza A/B, COVID-19 PCR, RSV negative Procalcitonin 0.28 ESR 96, LDH 331, CRP 29.75 BNP 160 AST/ALT/bilirubin/calcium within normal limit. Alk phos chronically elevated -- Rheumatoid arthritis On Plaquenil Likely has also been found to be beneficial in dermatological sarcoidosis with hypercalcemia --GUY Continue with CPAP --Pulmonary hypertension Likely combination of type II and type III --Restrictive lung disease Severe TLC 54%, FVC 37%, DLCO 25% predicted From underlying sarcoidosis --DNI Plan: Continue with Bactrim as if treating PJP Follow-up PJP PCR from the BAL I will increase Solu-Medrol to 40 mg every 8 hours. Patient is complaining of some anxiety as well which is understandable given the hypoxia and the need of oxygenation She requests Ativan. Would recommend patient to be closely monitored, if the patient is significantly hypoxic after getting any respiratory sedating medication put the patient on CPAP/BiPAP with a backup rate of at least 16-18 Overall prognosis is guarded. If we do not see any turnaround the next 24-48 hours then palliative care approach should be thought of. Please note the above document was generated using voice recognition software. It may contain grammatical, syntax or spelling errors.Any formal questions or concerns about the content, text or information contained within the body of this dictation should be directly addressed to the provider for clarification. Admission and Anticipated Discharge Date Admission Date: January 26, 2022 Subjective Patient seen and examined at bedside. Was in respiratory distress at the time of examination She was on 40 L 100% saturating 90 to 93% Denies any chest pain Even minimal exertion does make her hypoxic No headache, no blurry vision, no nausea or vomiting. Review of Systems Review of Systems: All systems reviewed & are unremarkable except as noted in Subjective Physical Exam Physical Exam: Constitutional: Respiratory distress HEENT: EOMI, PERRLA Respiratory system: Decreased air entry bilaterally,no rhonchi, positive Velcro crackles bilateral lower lobes, mild expiratory wheeze CVS: S1-S2 positive, no murmurs or gallops, tachycardia Abdomen: Soft, nontender, nondistended, positive bowel sounds x4 Extremities: +2 pulses bilaterally radialis/ dorsalis pedis, no cyanosis, no edema Neuro: Awake alert oriented x3 Psych: Normal mood and affect G/U: No Diaz Skin: no rashes, warm and dry Lymphatic: no cervical or axillary lymphadenopathy Results & Data Results & Data ([facility]) Vital Signs (Past 12 Hours) Vital Signs Temp Pulse Pulse Resp BP Pulse Ox O2 Del Method 01/29/22 07:23 108 H 40 H 92 High Flow Nasal Cannula 01/29/22 00:00 101 H 01/29/22 03:00 36.5 C 104 H 28 H 146/87 H 92 High Flow Nasal Cannula 01/29/22 03:02 101 H 24 94 High Flow Nasal Cannula 01/29/22 00:00 36.6 C 105 H 26 H 143/81 H 92 High Flow Nasal Cannula O2 Flow Rate FiO2 01/29/22 07:23 40 100 01/29/22 00:00 01/29/22 03:00 40 90 01/29/22 03:02 40 90 01/29/22 00:00 40 80 Laboratory Results 01/27/22 02:49 01/29/22 05:14 PG Care Time/CCT Total # of Minutes Spent Total Time Spent with Patient: Total time spent is greater than 50% in coordination of care (as documented) at patient's floor/unit and/or counseling patient: Coding Level of Care Code 08369 Subseq Hosp Care Lvl 3 Diagnoses Acute on chronic respiratory failure with hypoxemia J96.21 GUY (obstructive sleep apnea) G47.33 Pulmonary hypertension I27.20 Pulmonary sarcoidosis D86.0 Restrictive lung disease J98.4 Rheumatoid arthritis M06.9
[2022-01-29] MEDS ORDERED: ALBUT/IPRATROP 3MG/0.5MG NEB 3 ML VIAL INH SCH (19:00)
[2022-01-30] MEDS: ALBUT/IPRATROP 3MG/0.5MG NEB 3 ML VIAL INH SCH ×3 (00:55→14:59)
[2022-01-30] MEDS: LORazepam 0.5 MG in SYRINGE 0.25 ML IV PRN ×3 (03:37→19:52)
[2022-01-30] MEDS: methylPREDNISolone 40 MG in SYRINGE 0 ML IV SCH ×3 (05:39→21:35)
[2022-01-30] MEDS: SULFA/TRIMETH 400/80MG TAB PO SCH (05:39)
[2022-01-30 06:50] LABS: Creatinine Clr Calc Pharmacy 25.1 ml/min; Est GFR (African American) 31.2 ml/min; Est GFR (Non-African American) 26.9 ml/min
--- NOTE | 2022-01-30 06:57 | Hospitalist Progress Note ---
Date of Service January 29, 2022 Assessment & Plan (1) Acute dyspnea: Plan: Worsening shortness of breath, history of pulmonary sarcoid on prednisone wean now on intravenous steroids Acute on chronic respiratory failure with hypoxia now on 40L 100% high flow Escalation of need of oxygen support to high flow nasal cannula and required transition to higher level of care on 01/28/2022 -Patient after bronchoscopy performed on 01/27. Friable mucosa was seen recom mending PJP treatment preliminarily until results of testing returned maintained on intravenous steroids is now on high flow oxygen -initiated treatment for PJP awaiting results of testing - HR-CT-Chest 12/30/21: 1. Findings of interstitial/fibrotic lung disease with a lower lobe predominance as detailed above. This is similar to the 12/12/2019 examination and may be related to the reported history of sarcoidosis.2. There are calcified mediastinal and hilar lymph nodes.3. There is no evidence of superimposed airspace consolidation or pleural effusion.4. Cardiomegaly with evidence of pulmonary artery hypertension.5. Cholelithiasis.6. Additional findings as above. Tachycardia TTE: Preserved ejection fraction mild to moderate AI and 1 diastolic dysfunction mildly reduced right heart function by TAPSE - CT-C repeat: interstitial and ground glass changes infectious vs inflammatory (sarcoid) lung disease, on steroids and testing for PJP - Elevated troponin Suspect demand, no EKG changes. No chest pain on assessment. 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 DVT PPx: SCDs, heparin Diet; T2DM/HH CODE STATUS: Conditional, no intubation (2) Sinus tachycardia: (3) Pulmonary hypertension: (4) GUY (obstructive sleep apnea): (5) Pulmonary sarcoidosis: (6) Hyperparathyroidism: (7) Hypertension: (8) Hyponatremia: (9) Chronic kidney disease, stage III (moderate): (10) Diabetes: Admission and Anticipated Discharge Date Admission Date: January 26, 2022 Subjective pt is in moderate to severe respiratory distress Review of Systems Review of Systems: moderate respiratory distress and fatigue no headache, no visual changes no speech or swallowing issues no chest pain, pressure or palpitations Patient is obviously dyspneic she has a coarse cough no abdominal pain, nausea or vomiting, diarrhea or constipation no dysuria, hematuria or frequency no focal joint pain or swelling no back pain, CVA tenderness or radicular pain no bruising, bleeding or rashes no focal signs of weakness or numbness or altered sensation no complaints of anxiety or depression.. Physical Exam Physical Exam: The patient appeared well nourished and normally developed. Vital signs as documented. Head exam is normocephalic atraumatic Neck is without JVD, thyromegaly, or carotid bruits. Lungs patient has increased respiratory effort coarse breath sounds are heard in bilateral lung valerio with a raspy coarse cough Cardiac exam, Rhythm is regular.. No murmurs, rubs or gallops. Abdominal exam reveals normal bowel sounds, soft non tender, no masses Extremities are nonedematous and both pedal pulses are present Neurologic exam is alert and oriented, no focal loss of strength or sensation Skin is without bruises or rashes Psychologically is without concerns for anxiety or depression.. Results & Data Results & Data ([facility]) Vital Signs (Past 12 Hours) Vital Signs Temp Pulse Pulse Pulse Resp BP BP 01/29/22 19:18 107 H 41 H 01/29/22 17:24 01/29/22 17:24 105 H 30 H 126/69 01/29/22 17:00 106 H 27 H 01/29/22 16:01 102 H 22 01/29/22 16:01 115/60 01/29/22 16:00 104 H 28 H 01/29/22 15:00 109 H 31 H 01/29/22 14:14 142/94 H 01/29/22 14:14 112 H 36 H 01/29/22 14:00 108 H 26 H 01/29/22 13:00 99 H 25 H 01/29/22 12:00 104 H 27 H 01/29/22 12:00 98.6 F 01/29/22 15:41 118 H 47 H 01/29/22 15:41 118 H 47 H 01/29/22 11:01 113 H 45 H 01/29/22 11:00 113 H 39 H 01/29/22 10:00 120 H 34 H 01/29/22 09:01 123 H 20 01/29/22 09:01 137/83 01/29/22 09:00 124 H 27 H 01/29/22 08:00 111 H 32 H 01/29/22 08:00 98.6 F 01/29/22 08:00 Pulse Ox O2 Del Method O2 Flow Rate FiO2 01/29/22 19:18 90 70 01/29/22 17:24 CPAP 70 01/29/22 17:24 93 CPAP 70 01/29/22 17:00 91 01/29/22 16:01 92 01/29/22 16:01 01/29/22 16:00 91 01/29/22 15:00 91 01/29/22 14:14 01/29/22 14:14 93 01/29/22 14:00 91 01/29/22 13:00 94 01/29/22 12:00 96 01/29/22 12:00 01/29/22 15:41 92 BiPAP 70 01/29/22 15:41 92 70 01/29/22 11:01 97 90 01/29/22 11:00 96 01/29/22 10:00 93 01/29/22 09:01 85 L 01/29/22 09:01 01/29/22 09:00 85 L 01/29/22 08:00 95 01/29/22 08:00 01/29/22 08:00 High Flow Nasal Cannula 40 100 PG Care Time/CCT Total # of Minutes Spent Total Time Spent with Patient: Total time spent is greater than 50% in coordination of care (as documented) at patient's floor/unit and/or counseling patient: Coding Level of Care Code 85186 Subseq Hosp Care Lvl 3 Diagnoses Acute dyspnea R06.00 Sinus tachycardia R00.0 Pulmonary hypertension I27.20 GUY (obstructive sleep apnea) G47.33 Pulmonary sarcoidosis D86.0 Hyperparathyroidism E21.3 Hypertension I10 Hyponatremia E87.1 Chronic kidney disease, stage III (moderate) N18.3 Diabetes E11.9
[2022-01-30] MEDS: INSULIN ASPART PER UNIT SC SCH ×4 (08:23→21:13)
[2022-01-30] MEDS: ATORVASTATIN 10 MG TAB PO SCH (08:24)
[2022-01-30] MEDS: AMITRIPTYLINE HCL 25 MG TAB PO SCH (08:24)
[2022-01-30] MEDS: FLUTICASONE/VILANTEROL 200/25MCG 14 PUFFS/INHALER INH SCH (08:24)
[2022-01-30] MEDS: GABAPENTIN 300 MG CAP PO SCH ×4 (08:25→21:14)
[2022-01-30] MEDS: HEPARIN SOD 5,000 UNIT/0.5 ML VIAL SQ SCH ×2 (08:25→21:34)
[2022-01-30] MEDS: hydroCHLOROthiazide 25 MG TAB PO SCH (08:26)
[2022-01-30] MEDS: PANTOprazole 40 MG TAB PO SCH ×2 (08:28→21:34)
[2022-01-30] MEDS: HYDROXYCHLOROQUINE SULFATE 200 MG TAB PO SCH (08:28)
[2022-01-30] MEDS: VALSARTAN 80 MG TAB PO SCH (08:29)
--- NOTE | 2022-01-30 08:37 | Pulmonology Progress Note ---
Date of Service January 30, 2022 Assessment & Plan (1) Acute on chronic respiratory failure with hypoxemia: (2) GUY (obstructive sleep apnea): (3) Pulmonary hypertension: (4) Pulmonary sarcoidosis: (5) Restrictive lung disease: (6) Rheumatoid arthritis: Plan CT chest 01/26/2022 personally reviewed: Fibrotic changes appreciated bilateral upper lobes Traction bronchiectasis bilateral lower lobes Diffuse groundglass opacities appreciated upper and lower lobes especially in the lower lobes Calcified mediastinal lymph nodes with no mediastinal lymphadenopathy -- Acute on chronic hypoxic failure Multifactorial CT chest shows traction bronchiectasis as well as groundglass opacities appreciated bilateral lower lobes which is new compared to HRCT 12/30/21 This could be progression of patient's underlying sarcoidosis/ILD. Infectious process/pneumonitis can present similarly. Patient was given prednisone prolonged taper recently. PJP could present in the same way along with pulmonary edema S/p bronchoscopy 01/27/2022. Neutrophilic with only 8% lymphocytes. Follow-up PJP PCR Continue with Bactrim for the time being. Influenza A/B, COVID-19 PCR, RSV negative Procalcitonin 0.28 ESR 96, LDH 331, CRP 29.75 BNP 160 AST/ALT/bilirubin/calcium within normal limit. Alk phos chronically elevated -- Rheumatoid arthritis On Plaquenil Likely has also been found to be beneficial in dermatological sarcoidosis with hypercalcemia --GUY Continue with CPAP --Pulmonary hypertension Likely combination of type II and type III --Restrictive lung disease Severe TLC 54%, FVC 37%, DLCO 25% predicted From underlying sarcoidosis --DNI Plan: Bronch cultures negative to date. PJP PCR still pending. C/w Bactrim Discussed prognosis with family bedside. They want to know if transfer to tertiary center will be beneficial. f/u CXR Recommend palliative care/ comfort measures. Case discussed with Dr De Los Santos Please note the above document was generated using voice recognition software. It may contain grammatical, syntax or spelling errors. Any formal questions or concerns about the content, text or information contained within the body of this dictation should be directly addressed to the provider for clarification. Admission and Anticipated Discharge Date Admission Date: January 26, 2022 Subjective Patient seen and examined at bedside. In respiratory distress. Saturating 89-90% on bipap 10/5 100% with nasal mask. Denies any CP, no GARCIA, No N or V. Review of Systems Review of Systems: All systems reviewed & are unremarkable except as noted in Subjective Physical Exam Physical Exam: Constitutional: Respiratory distress HEENT: EOMI, PERRLA Respiratory system: Decreased air entry bilaterally,no rhonchi, positive Velcro crackles bilateral lower lobes, no wheeze CVS: S1-S2 positive, no murmurs or gallops, tachycardia Abdomen: Soft, nontender, nondistended, positive bowel sounds x4 Extremities: +2 pulses bilaterally radialis/ dorsalis pedis, no cyanosis, no edema Neuro: Awake alert oriented x3 Psych: Normal mood and affect G/U: No Diaz Skin: no rashes, warm and dry Lymphatic: no cervical or axillary lymphadenopathy Results & Data Results & Data ([facility]) Vital Signs (Past 12 Hours) Vital Signs Temp Pulse Pulse Pulse Resp BP BP 01/30/22 08:00 36.4 C L 116 H 30 H 151/101 H 01/30/22 07:51 120 H 24 01/30/22 07:01 105 H 30 H 01/30/22 03:29 36.8 C 113 H 20 142/83 H 01/30/22 00:39 106 H 44 H 01/30/22 00:32 103 H 44 H 01/29/22 21:53 102 H 01/29/22 23:12 36.6 C 100 H 22 143/93 H 01/29/22 22:08 Pulse Ox O2 Del Method O2 Flow Rate FiO2 01/30/22 08:00 89 L High Flow Nasal Cannula 45 100 01/30/22 07:51 90 High Flow Nasal Cannula 45 100 01/30/22 07:01 92 BiPAP 85 01/30/22 03:29 92 CPAP 01/30/22 00:39 91 90 01/30/22 00:32 96 BiPAP 90 01/29/22 21:53 01/29/22 23:12 90 CPAP 01/29/22 22:08 CPAP 70 Laboratory Results 01/27/22 02:49 01/30/22 05:58 PG Care Time/CCT Total # of Minutes Spent Total Time Spent with Patient: Total time spent is greater than 50% in coordination of care (as documented) at patient's floor/unit and/or counseling patient: Coding Level of Care Code 89213 Subseq Hosp Care Lvl 3 Diagnoses Acute on chronic respiratory failure with hypoxemia J96.21 GUY (obstructive sleep apnea) G47.33 Pulmonary hypertension I27.20 Pulmonary sarcoidosis D86.0 Restrictive lung disease J98.4 Rheumatoid arthritis M06.9
[2022-01-30] MEDS: LANTUS PER UNIT CHARGE SQ SCH ×2 (08:41→21:13)
[2022-01-30 10:38] LABS: BUN Creatinine Ratio 33.3 (10-20); Calcium 9.2 mg/dl (8.5-10.1); Est GFR (Non-African American) 26.7 ml/min; Potassium 4.7 mmol/L (3.5-5.1)
--- NOTE | 2022-01-30 10:55 | Pharmacy Report ---
Pharmacy Glycemic Short Note 2 - Date of Service January 30, 2022 - Glycemic Short BSG Results (Last 24 hours): 01/29/22 01/29/22 01/29/22 11:33 16:20 20:14 Glucose POC Glucose 170 H 160 H 159 H 01/30/22 01/30/22 07:23 09:39 Glucose 186 H POC Glucose 137 H OUTPATIENT ANTIDIABETIC REGIMEN: * Levemir 30 units SC daily * Novolog 8 units SC BIDM * HbA1c: 6.8% (12/22/21) ASSESSMENT: 01/30 * 32 unit SQ administer in last 24 hrs. BSGs well controlled despite increase in steroid dose yesterday. PO intake improved yesterday as well. * Fasting BSG 137 this AM w/ 24 units basal on board - will continue * Post-prandial BSGs well controlled as well - continue current CF/CR and follow post-prandial trend 01/28 * 29 units SQ administered in last 24 hrs. BSGs well controlled during this time. * Fasting BSG 151 this AM with 20 units basal on board. IV Solu-Medrol continues at same dose, diet advanced. Will titrated up basal slightly today. * Post-prandial BSGs to be evaluated with current Novolog CF/CR. Only small increases in dose at this time given pre-lunch elevation today w/ ongoing steroid therapy. 01/27 * TC is a 71 year old female who presented to ED yesterday with worsening sh ortness of breath * patient has history of restrictive lung disease from underlying sarcoidosis, currently on prednisone taper as outpatient * S/p bronchoscopy this morning - currently NPO * Steroids changed from prednisone to methylprednisolone 40 mg IV BID today * BSGs reasonably controlled at this time, will plan on ~weight-based stress of 2 dosing at this time PLAN FOR INPATIENT GLYCEMIC CONTROL: * Basal insulin * Lantus 12 units SC BID * Bolus insulin * NovoLog per scale ACHS or Q6hrs while NPO * Goal Range: Low 110 mg/dL - High 140 mg/dL * Correction Factor: 30 mg/dL/unit * Nutritional / Prandial insulin per carb ratio of 1 unit per 10 grams CHO consumed
[2022-01-30] MEDS ORDERED: LORazepam 1 MG in SYRINGE 0.5 ML IV ONE (11:00)
--- NOTE | 2022-01-30 11:45 | XRay Report ---
XR chest 1V portable CLINICAL HISTORY: f/u COMPARISON STUDY: Chest CT January 26, 2022. Chest radiograph January 29, 2022. FINDINGS: There is no pneumothorax or pleural effusion. Lungs volumes are diminished. Right upper teodoro g airspace opacity has progressed with suspected volume loss. Otherwise, multifocal airspace opacitie s within the lungs are similar to prior study. Underlying interstitial lung disease is better depicte d on prior chest CT. IMPRESSION: 1. Increase in right upper lobe airspace opacity with volume loss. This could reflect developing righ t upper lobe atelectasis. 2. Multifocal airspace opacities suggestive of pneumonia superimposed upon interstitial lung disease. ACT 112: Negative or not required by law. Electronically signed by: Sergio Buitrago M.D. 01/30/2022 11:44 AM
--- NOTE | 2022-01-30 19:21 | Hospitalist Progress Note ---
Date of Service January 30, 2022 Assessment & Plan (1) Acute dyspnea: Plan: Worsening shortness of breath, history of pulmonary sarcoid on prednisone Significant escalation of oxygen requirement despite intervention with intravenous steroids and antibiotics Acute on chronic respiratory failure with hypoxia now BiPAP with 100% Patient survival is most likely not attainable we will continue to support the patient as she and her family wishes Not yet progressed to palliative or hospice care -Patient after bronchoscopy performed on 01/27. Friable mucosa was seen recommending PJP treatment preliminarily until results of testing returned maintained on intravenous steroids is now on high flow oxygen -initiated treatment for PJP oral treatment stopped testing does not suggest this to be PJP - HR-CT-Chest 12/30/21: 1. Findings of interstitial/fibrotic lung disease with a lower lobe predominance as detailed above. This is similar to the 12/12/2019 examination and may be related to the reported history of sarcoidosis.2. There are calcified mediastinal and hilar lymph nodes.3. There is no evidence of superimposed airspace consolidation or pleural effusion.4. Cardiomegaly with evidence of pulmonary artery hypertension.5. Cholelithiasis.6. Additional findi ngs as above. Tachycardia TTE: Preserved ejection fraction mild to moderate AI and 1 diastolic dysfunction mildly reduced right heart function by TAPSE - CT-C repeat: interstitial and ground glass changes infectious vs inflammatory (sarcoid) lung disease, on steroids and testing for PJP -overal outlook is poor Elevated troponin Suspect demand, no EKG changes. No chest pain on assessment. 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 amitriptyline DVT PPx: SCDs, heparin Diet; T2DM/HH CODE STATUS: Conditional, no intubation (2) Sinus tachycardia: (3) Pulmonary hypertension: (4) GUY (obstructive sleep apnea): (5) Pulmonary sarcoidosis: (6) Hyperparathyroidism: (7) Hypertension: (8) Hyponatremia: (9) Chronic kidney disease, stage III (moderate): (10) Diabetes: Admission and Anticipated Discharge Date Admission Date: January 26, 2022 Subjective Patient significant respiratory distress BiPAP dependent multiple conversations were held throughout the day with her and her family try to determine if we should proceed to additional resuscitation restrictions at this point time she is a conditional code very with no intubation but permitting cardiac resuscitation. A [place] discussion was held with all family members that this patient will no longer likely improved but will worsen and is very tenuous is without the BiPAP support with 100% FiO2 she desaturates rapidly and profoundly. On the BiPAP she has transient episodes of clarity family is visiting has not yet progressed to comfort care Review of Systems Review of Systems: moderate respiratory distress and fatigue Patient's extreme illness and waxing and waning mental status prevents appropriate review of systems Physical Exam Physical Exam: The patient appeared very respiratory distress using accessory muscles with abdominal breathing Vital signs as documented. Head exam is normocephalic atraumatic Lungs patient coarse breath sounds with poor air movement heard throughout all lung valerio Cardiac exam, tachycardic and regular Abdominal exam distended and tender Benedick probably from air swallowing Extremities are nonedematous and both pedal pulses are present Neurologic exam is alert times conversational other times obtunded Results & Data Results & Data ([facility]) Vital Signs (Past 12 Hours) Vital Signs Temp Pulse Pulse Resp BP Pulse Ox O2 Del Method 01/30/22 15:02 105 H 30 H 95 BiPAP 01/30/22 15:00 103 H 30 H 102 H 01/30/22 14:51 106 H 40 H 155/73 H 91 CPAP 01/30/22 12:12 98.4 F 105 H 26 H 120/79 94 BiPAP 01/30/22 08:00 High Flow Nasal Cannula 01/30/22 10:43 115 H 37 H 89 L 01/30/22 08:00 97.5 F L 116 H 30 H 151/101 H 89 L High Flow Nasal Cannula 01/30/22 07:51 120 H 24 90 High Flow Nasal Cannula O2 Flow Rate FiO2 01/30/22 15:02 100 01/30/22 15:00 100 01/30/22 14:51 100 01/30/22 12:12 01/30/22 08:00 01/30/22 10:43 100 01/30/22 08:00 45 100 01/30/22 07:51 45 100 PG Care Time/CCT Total # of Minutes Spent Total Time Spent with Patient: Total time spent is greater than 50% in coordination of care (as documented) at patient's floor/unit and/or counseling patient: Prolonged Care Time Overall additional 35 minutes were spent with care time with this family and patient just on top of her normal regular visit of a level 3 Coding Level of Care Code 69085 Subseq Hosp Care Lvl 3 (25 - SIGNIFICANT, SEPARATELY IDENTIFIABLE ) Diagnoses Acute dyspnea R06.00 Sinus tachycardia R00.0 Pulmonary hypertension I27.20 GUY (obstructive sleep apnea) G47.33 Pulmonary sarcoidosis D86.0 Hyperparathyroidism E21.3 Hypertension I10 Hyponatremia E87.1 Chronic kidney disease, stage III (moderate) N18.3 Diabetes E11.9 Time Spent (min) 35
[2022-01-30 20:02] LABS: Fungitell (1-3)-B-D-Glucan <31 pg/mL
[2022-01-30] MEDS ORDERED: SULFAMETHOXAZOLE/TRIMETHOPRIM DS 800/160MG TAB PO SCH (21:00)
[2022-01-31] MEDS: ALBUT/IPRATROP 3MG/0.5MG NEB 3 ML VIAL INH SCH ×4 (00:05→23:11)
[2022-01-31] MEDS: LORazepam 0.5 MG in SYRINGE 0.25 ML IV PRN ×5 (00:35→20:18)
[2022-01-31] MEDS: methylPREDNISolone 40 MG in SYRINGE 0 ML IV SCH ×3 (05:03→20:18)
[2022-01-31 06:36] LABS: Pneumocystis jirovecii PCRQual NOT DETECTED; Pneumocystis jirovecii Source BRONCH LAVAGE
[2022-01-31 07:22] LABS: BUN Creatinine Ratio 37.7 (10-20); Calcium 9.2 mg/dl (8.5-10.1); Creatinine Clr Calc Pharmacy 24.3 ml/min; Est GFR (Non-African American) 25.9 ml/min; Potassium 4.8 mmol/L (3.5-5.1)
--- NOTE | 2022-01-31 07:37 | Pulmonology Progress Note ---
Date of Service January 31, 2022 Assessment & Plan (1) Acute on chronic respiratory failure with hypoxemia: (2) GUY (obstructive sleep apnea): (3) Pulmonary hypertension: (4) Pulmonary sarcoidosis: (5) Restrictive lung disease: (6) Rheumatoid arthritis: Plan CT chest 01/26/2022 personally reviewed: Fibrotic changes appreciated bilateral upper lobes Traction bronchiectasis bilateral lower lobes Diffuse groundglass opacities appreciated upper and lower lobes especially in the lower lobes Calcified mediastinal lymph nodes with no mediastinal lymphadenopathy -- Acute on chronic hypoxic failure Multifactorial CT chest shows traction bronchiectasis as well as groundglass opacities appreciated bilateral lower lobes which is new compared to HRCT 12/30/21 This could be progression of patient's underlying sarcoidosis/ILD. Infectious process/pneumonitis can present similarly. Patient was given prednisone prolonged taper recently. PJP could present in the same way along with pulmonary edema S/p bronchoscopy 01/27/2022. Neutrophilic with only 8% lymphocytes. PJP PCR negative, discontinue Bactrim Bronch culture negative date Influenza A/B, COVID-19 PCR, RSV negative Procalcitonin 0.28 ESR 96, LDH 331, CRP 29.75 BNP 160 AST/ALT/bilirubin/calcium within normal limit. Alk phos chronically elevated -- Rheumatoid arthritis On Plaquenil Likely has also been found to be beneficial in dermatological sarcoidosis with hypercalcemia --GUY Continue with CPAP --Pulmonary hypertension Likely combination of type II and type III --Restrictive lung disease Severe TLC 54%, FVC 37%, DLCO 25% predicted From underlying sarcoidosis --DNI Plan: From cultures negative to date, PJP PCR negative. Bactrim has been discontinued Continue with Solu-Medrol 40 mg Q8 Patient has been diuresing well. I did discuss of patient's poor prognosis given culture negative for any bacteria or fungus. The probability of worsening of underlying ILD is the case of her clinical deterioration. I did palliative care approach. All questions inquiries of the patient's son, patient's sister as well as grandson were answered in depth Case discussed with Dr De Los Santos Please note the above document was generated using voice recognition software. It may contain grammatical, syntax or spelling errors. Any formal questions or concerns about the content, text or information contained within the body of th is dictation should be directly addressed to the provider for clarification. Admission and Anticipated Discharge Date Admission Date: January 26, 2022 Subjective Patient seen and examined at bedside. Patient was on BiPAP 100% saturating 92% with heart rate in 110 She had gotten Ativan 15 minutes prior to me seeing the patient She was drowsy. Review of Systems Review of Systems: Unobtainable due to reduced consciousness Physical Exam Physical Exam: Constitutional: Respiratory distress HEENT: PERRLA Respiratory system: Decreased air entry bilaterally,no rhonchi, positive Velcro crackles bilateral lower lobes, positive wheezing bilaterally CVS: S1-S2 positive, no murmurs or gallops, tachycardia Abdomen: Soft, nontender, nondistended, positive bowel sounds x4 Extremities: +2 pulses bilaterally radialis/ dorsalis pedis, no cyanosis, no edema Neuro: Somnolent Psych: Unable to assess G/U: No Diaz Skin: no rashes, warm and dry Lymphatic: no cervical or axillary lymphadenopathy Results & Data Results & Data ([facility]) Vital Signs (Past 12 Hours) Vital Signs Pulse Pulse Pulse Resp BP Pulse Ox O2 Del Method 01/31/22 07:23 108 H 28 H 90 BiPAP 01/31/22 07:23 108 H 28 H 90 01/31/22 06:20 87 L 01/31/22 00:20 01/31/22 00:07 102 H 26 H 97 01/31/22 00:05 101 H 26 H 97 BiPAP 01/30/22 22:10 116 H 01/30/22 23:15 104 H 21 122/44 L 97 BiPAP 01/30/22 20:44 105 H 18 127/70 95 BiPAP FiO2 01/31/22 07:23 100 01/31/22 07:23 100 01/31/22 06:20 01/31/22 00:20 100 01/31/22 00:07 95 01/31/22 00:05 95 01/30/22 22:10 01/30/22 23:15 01/30/22 20:44 Laboratory Results 01/27/22 02:49 01/31/22 06:08 PG Care Time/CCT Total # of Minutes Spent Total Time Spent with Patient: Total time spent is greater than 50% in coordination of care (as documented) at patient's floor/unit and/or counseling patient: Coding Level of Care Code 26722 Subseq Hosp Care Lvl 3 Diagnoses Acute on chronic respiratory failure with hypoxemia J96.21 GUY (obstructive sleep apnea) G47.33 Pulmonary hypertension I27.20 Pulmonary sarcoidosis D86.0 Restrictive lung disease J98.4 Rheumatoid arthritis M06.9
[2022-01-31] MEDS: PANTOprazole 40 MG TAB PO SCH (08:02)
[2022-01-31] MEDS: HEPARIN SOD 5,000 UNIT/0.5 ML VIAL SQ SCH ×2 (08:03→20:18)
[2022-01-31] MEDS: HYDROXYCHLOROQUINE SULFATE 200 MG TAB PO SCH (08:08)
[2022-01-31] MEDS: VALSARTAN 80 MG TAB PO SCH (08:09)
[2022-01-31] MEDS: hydroCHLOROthiazide 25 MG TAB PO SCH (08:09)
[2022-01-31] MEDS: AMITRIPTYLINE HCL 25 MG TAB PO SCH (08:10)
[2022-01-31] MEDS: ATORVASTATIN 10 MG TAB PO SCH (08:10)
[2022-01-31] MEDS: GABAPENTIN 300 MG CAP PO SCH ×4 (08:10→20:18)
[2022-01-31] MEDS: FLUTICASONE/VILANTEROL 200/25MCG 14 PUFFS/INHALER INH SCH (08:11)
[2022-01-31] MEDS: INSULIN ASPART PER UNIT SC SCH ×4 (08:48→21:14)
[2022-01-31] MEDS ORDERED: AZITHROMYCIN 500 MG in DEXTROSE 5% 250 ML IV SCH (09:00)
[2022-01-31] MEDS: LANTUS PER UNIT CHARGE SQ SCH ×2 (09:25→21:14)
[2022-01-31] MEDS: DOXYCYCLINE HYCLATE 100 MG in DEXTROSE 5% 100 ML IV SCH ×2 (10:00→20:18)
--- NOTE | 2022-01-31 15:50 | Hospitalist Progress Note ---
Date of Service January 31, 2022 Assessment & Plan (1) Acute dyspnea: Plan: Acute dyspnea: Worsening shortness of breath, history of pulmonary sarcoid on prednisone Significant escalation of oxygen requirement despite intervention with in travenous steroids and antibiotics Acute on chronic respiratory failure with hypoxia now BiPAP with 100% Pulmonary consulted and following. Bronchoscopy performed 01/27/2022. There was friable mucosa. Initial we will results from respiratory specimens include moderate normal donna, no acid-fast bacilli on the smear, no evidence of fungal infection Pulmonology recommended continuation of Bactrim for now. If final culture comes back negative, can discontinue Bactrim. We will also continue on doxycycline Patient has been on steroids since November with worsening symptoms over the last several weeks. No indication for higher doses of prednisone at this time - HR-CT-Chest 12/30/21: 1. Findings of interstitial/fibrotic lung disease with a lower lobe predominance as detailed above. This is similar to the 12/12/2019 examination and may be related to the reported history of sarcoidosis.2. There are calcified mediastinal and hilar lymph nodes.3. There is no evidence of superimposed airspace consolidation or pleural effusion.4. Cardiomegaly with evidence of pulmonary artery hypertension.5. Cholelithiasis.6. Additional findings as above. Tachycardia TTE: Preserved ejection fraction mild to moderate AI and 1 diastolic dysfunction mildly reduced right heart function by TAPSE - CT-C repeat: interstitial and ground glass changes infectious vs inflammatory (sarcoid) lung disease, on steroids and testing for PJP -Overall outlook is poor. Patient's family agrees that palliative care consult will be appropriate at this time. Unfortunately, we do not have a palliative care provider in-house over the weekend. Elevated troponin Suspect demand, no EKG changes. No chest pain on assessment. -Currently trending down. Peaked at 59.1. Most recent values from 01/27/2022 at 24 Echocardiogram performed 01/27/2022 with normal LV systolic function and size. LVEF 55 to 60%. Grade 1 diastolic dysfunction with impaired relaxation. Hypertension Continue to hold valsartan/HCTZ for creatinine elevation Chronic kidney disease stage III - Most likely from hypertension -Creatinine 1.91. 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 Agree with assessment and plan. Subjective Seen and examined at bedside. She is extremely agitated. She is also using abdominal muscles for breathing. Family members are at bedside. Long discussion with them about goals of treatment and care. Patient denies any acute discomfort at this time. No chest pain or tightness. No fever. No other acute complaints Review of Systems Review of Systems: A total of 10 systems was reviewed and is negative other than as listed in the HPI Physical Exam Physical Exam: GENERAL : Moderate distress EYES: No icterus, gaze conjugate NOSE: No evidence of epistaxis MOUTH: No lesions or candidiasis. BiPAP mask in place NECK: Supple LUNGS: Lungs are diminished. Patient is "belly breathing". Some fine crackles at the bases. No bronchospasm appreciated. No paradoxical chest wall movement. HEART: Regular, tachycardic at 112 bpm ABDOMEN: Soft, NT, ND, BS Present. Belly breathing. EXTREMITIES: No LE edema, pedal pulses intact and equal bilaterally. NEURO: Awake and alert. Able to provide ROS. Other history obtained from family members present in the room. Patient moves all 4 limbs spontaneously. Appears agitated. Results & Data Results & Data ([facility]) Vital Signs (Past 12 Hours) Vital Signs Temp Pulse Pulse Pulse Resp BP Pulse Ox 01/31/22 12:21 36.5 C 85 30 H 148/52 H 90 01/31/22 10:53 01/31/22 07:23 108 H 28 H 90 01/31/22 07:23 108 H 28 H 90 01/31/22 06:20 87 L O2 Del Method FiO2 01/31/22 12:21 BiPAP 01/31/22 10:53 BiPAP 01/31/22 07:23 BiPAP 100 01/31/22 07:23 100 01/31/22 06:20 Critical Care Results & Data Vital Signs (Past 12 Hours) Vital Signs Temp Pulse Pulse Pulse Resp BP Pulse Ox 01/31/22 12:21 36.5 C 85 30 H 148/52 H 90 01/31/22 10:53 01/31/22 07:23 108 H 28 H 90 01/31/22 07:23 108 H 28 H 90 01/31/22 06:20 87 L O2 Del Method FiO2 01/31/22 12:21 BiPAP 01/31/22 10:53 BiPAP 01/31/22 07:23 BiPAP 100 01/31/22 07:23 100 01/31/22 06:20 Lab & Micro Results (Past 24 Hours) No Data to Display No Data to Display No Data to Display Microbiology 01/27/22 11:41 Acid Fast Bacilli Smear - Final Ba Lavage,Right Lower Lobe Acid Fast Bacilli Culture - Preliminary No Acid-Fast Bacilli Isolated - Report 1, Additional Report to Follow. I & O Totals 24 Hours 01/30/22 01/31/22 02/01/22 06:59 06:59 06:59 Intake Total 520 / 520 110 / 110 Output Total 800 / 800 725 / 725 1800 / 1800 Balance -280 / -280 -725 / -725 -1690 / -1690 Cumulative 01/26/22 13:24 thru 01/31/22 13:23 Intake Total 2600 Output Total 3575 Balance -975 RT Ventilator Mngmt (Last Documented) Ventilator Ordered Settings Respiratory Rate 30 01/31/22 12:21 Fraction of Inspired Oxygen 100 01/31/22 07:23 Ventilator - PT Measurements Respiratory Rate 30 PG Care Time/CCT Total # of Minutes Spent Total Time Spent with Patient: Total time spent is greater than 50% in coordination of care (as documented) at patient's floor/unit and/or counseling patient: 40 minutes [id number] including discussion with patient and family for or discussion of goal of care Coding Level of Care Code 83798 Subseq Hosp Care Lvl 3 (25 - SIGNIFICANT, SEPARATELY IDENTIFIABLE ) Diagnoses Acute dyspnea R06.00 Sinus tachycardia R00.0 Pulmonary hypertension I27.20 GUY (obstructive sleep apnea) G47.33 Pulmonary sarcoidosis D86.0 Hyperparathyroidism E21.3 Hypertension I10 Hyponatremia E87.1 Chronic kidney disease, stage III (moderate) N18.3 Diabetes E11.9 Time Spent (min) 40 Comment 40 minutes [id number] with patient and family in addition to chart review and documentat
[2022-01-31] MEDS ORDERED: LORazepam 0.5 MG in SYRINGE 0.25 ML IV STA (17:19)
[2022-01-31] MEDS: PANTOprazole 40 MG in SYRINGE 0 ML IV SCH (20:45)
[2022-01-31] MEDS ORDERED: LANTUS PER UNIT CHARGE SQ SCH (21:00)
[2022-01-31] MEDS ORDERED: INSULIN ASPART PER UNIT SC SCH (21:15)
[2022-02-01] MEDS: INSULIN ASPART PER UNIT SC SCH ×3 (00:12→13:15)
[2022-02-01] MEDS: LORazepam 0.5 MG in SYRINGE 0.25 ML IV PRN ×2 (03:25→07:56)
[2022-02-01] MEDS: methylPREDNISolone 40 MG in SYRINGE 0 ML IV SCH ×2 (05:19→14:22)
[2022-02-01] MEDS: ALBUT/IPRATROP 3MG/0.5MG NEB 3 ML VIAL INH SCH ×2 (07:17→16:16)
[2022-02-01] MEDS: DOXYCYCLINE HYCLATE 100 MG in DEXTROSE 5% 100 ML IV SCH (07:56)
[2022-02-01] MEDS: PANTOprazole 40 MG in SYRINGE 0 ML IV SCH (07:56)
--- NOTE | 2022-02-01 08:17 | Hospitalist Progress Note ---
Date of Service February 01, 2022 Assessment & Plan (1) Acute dyspnea: Plan: Acute dyspnea: Worsening shortness of breath, history of pulmonary sarcoid on prednisone Significant escalation of oxygen requirement despite intervention with intravenous steroids and antibiotics Acute on chronic respiratory failure with hypoxia now BiPAP with 100% Pulmonary consulted and following. Bronchoscopy performed 01/27/2022. There was friable mucosa. Initial we will results from respiratory specimens include moderate normal donna, no acid-fast bacilli on the smear, no evidence of fungal infection Pulmonology recommended continuation of Bactrim for now. If final culture comes back negative, can discontinue Bactrim. We will also continue on doxycycline Patient has been on steroids since November with worsening symptoms over the last several weeks. No indication for higher doses of prednisone at this time - HR-CT-Chest 12/30/21: 1. Findings of interstitial/fibrotic lung disease with a lower lobe predominance as detailed above. This is similar to the 12/12/2019 examination and may be related to the reported history of sarcoidosis.2. There are calcified mediastinal and hilar lymph nodes.3. There is no evidence of superimposed airspace consolidation or pleural effusion.4. Cardiomegaly with evidence of pulmonary artery hypertension.5. Cholelithiasis. Tachycardia TTE: Preserved ejection fraction mild to moderate AI and 1 diastolic dysf unction mildly reduced right heart function by TAPSE - CT-C repeat: interstitial and ground glass changes infectious vs inflammatory (sarcoid) lung disease, on steroids and testing for PJP -Patient's condition has significantly deteriorated over the past two days. Discussion with the son darrin andrew this morning and then discussion with the patient and the family at bedside. Will transition to comfort measures only. Family is in agreement at this time. Nurse and attending contacted. Orders for UROLOGIST PHYSICIAN placed and initiated by RN team. All previous orders discontinued per UROLOGIST PHYSICIAN order set. Elevated troponin Suspect demand, no EKG changes. No chest pain on assessment. -Currently trending down. Peaked at 59.1. Most recent values from 01/27/2022 at 24 Echocardiogram performed 01/27/2022 with normal LV systolic function and size. LVEF 55 to 60%. Grade 1 diastolic dysfunction with impaired relaxation. Hypertension Continue to hold valsartan/HCTZ for creatinine elevation Chronic kidney disease stage III - Most likely from hypertension -Creatinine 1.91. Baseline appears to be around 1.5 GERD Continue Protonix Hyperlipidemia Continue statin Type II DM On insulin 8 units twice daily, detemir 30 units daily DIRECT CHILL CASTER Converted to basal/bolus with Lantus while inpatient Goal BSG [id number], SSI DVT PPx: SCDs, heparin Diet; T2DM/HH CODE STATUS: Conditional, no intubation (2) Sinus tachycardia: (3) Pulmonary hypertension: (4) GUY (obstructive sleep apnea): (5) Pulmonary sarcoidosis: (6) Hyperparathyroidism: (7) Hypertension: (8) Hyponatremia: (9) Chronic kidney disease, stage III (moderate): (10) Diabetes: Admission and Anticipated Discharge Date Admission Date: January 26, 2022 Supervising Physician Co-Signing Physician Notes The patient was not seen by me but discussed with LEO Moore. Agree with assessment and plan. Subjective Attending: Dr. Daniel Patient with significant decline overnight. More agitated and now requiring ativan q4h. RR 32 with use of accessory muscles. Family was at bedside all night. Will be here will balance of family at 11:00 am to discuss goals of care. Unable to draw labs. Opens eyes but general confusion again today Patient continues on contact precautions for positive MRSA swab 01/28/2022 Review of Systems Review of Systems: A total of 10 systems was reviewed and is negative other than as listed in the HPI Physical Exam Physical Exam: GENERAL : Significant pulmonary distress. Accessory muscle use. EYES: No icterus, gaze conjugate. Pupils equal round and reactive to light NOSE: No evidence of epistaxis MOUTH: No lesions or candidiasis. Mucosa dry NECK: Supple LUNGS: Scattered wheezes. Increased Rales at the bases. HEART: Regular, tachycardic ABDOMEN: Soft, NT, ND, BS Present EXTREMITIES: No LE edema, pedal pulses intact NEURO: Awake and alert. Moves all extremities to command. Extremely weak. Results & Data Results & Data ([facility]) Vital Signs (Past 12 Hours) Vital Signs Temp Pulse Pulse Pulse Resp BP Pulse Ox 02/01/22 07:57 105 H 26 H 92 02/01/22 07:57 105 H 26 H 92 02/01/22 07:44 110 H 32 H 130/70 91 02/01/22 03:50 104 H 27 H 93 02/01/22 03:13 36.6 C 108 H 21 115/55 L 94 01/31/22 23:30 100 H 22 95 01/31/22 23:30 100 H 22 95 01/31/22 22:13 101 H 01/31/22 23:54 36.4 C L 109 H 21 112/51 L 93 O2 Del Method FiO2 02/01/22 07:57 BiPAP 90 02/01/22 07:57 90 02/01/22 07:44 BiPAP 90 02/01/22 03:50 90 02/01/22 03:13 BiPAP 01/31/22 23:30 BiPAP 90 01/31/22 23:30 90 01/31/22 22:13 01/31/22 23:54 BiPAP 90 Critical Care Results & Data Vital Signs (Past 12 Hours) Vital Signs Temp Pulse Pulse Pulse Resp BP Pulse Ox 02/01/22 07:57 105 H 26 H 92 02/01/22 07:57 105 H 26 H 92 02/01/22 07:44 110 H 32 H 130/70 91 02/01/22 03:50 104 H 27 H 93 02/01/22 03:13 36.6 C 108 H 21 115/55 L 94 01/31/22 23:30 100 H 22 95 01/31/22 23:30 100 H 22 95 01/31/22 22:13 101 H 01/31/22 23:54 36.4 C L 109 H 21 112/51 L 93 O2 Del Method FiO2 02/01/22 07:57 BiPAP 90 02/01/22 07:57 90 02/01/22 07:44 BiPAP 90 02/01/22 03:50 90 02/01/22 03:13 BiPAP 01/31/22 23:30 BiPAP 90 01/31/22 23:30 90 01/31/22 22:13 01/31/22 23:54 BiPAP 90 Lab & Micro Results (Past 24 Hours) No Data to Display No Data to Display No Data to Display Microbiology 01/27/22 11:41 Acid Fast Bacilli Smear - Final Ba Lavage,Right Lower Lobe Acid Fast Bacilli Culture - Preliminary No Acid-Fast Bacilli Isolated - Report 1, Additional Report to Follow. I & O Totals 24 Hours 01/31/22 02/01/22 02/02/22 06:59 06:59 06:59 Intake Total 270 / 270 Output Total 725 / 725 2115 / 2115 Balance -725 / -725 -1845 / -1845 Cumulative 01/26/22 13:24 thru 02/01/22 05:44 Intake Total 2760 Output Total 3890 Balance -1130 RT Ventilator Mngmt (Last Documented) Ventilator Ordered Settings Respiratory Rate 26 02/01/22 07:57 Fraction of Inspired Oxygen 90 02/01/22 07:57 Ventilator - PT Measurements Respiratory Rate 26 PG Care Time/CCT Total # of Minutes Spent Total Time Spent with Patient: Total time spent is greater than 50% in coordination of care (as documented) at patient's floor/unit and/or counseling patient:45 minutes including two visits Coding Level of Care Code 61453 Subseq Hosp Care Lvl 3 (25 - SIGNIFICANT, SEPARATELY IDENTIFIABLE ) Diagnoses Acute dyspnea R06.00 Sinus tachycardia R00.0 Pulmonary hypertension I27.20 GUY (obstructive sleep apnea) G47.33 Pulmonary sarcoidosis D86.0 Hyperparathyroidism E21.3 Hypertension I10 Hyponatremia E87.1 Chronic kidney disease, stage III (moderate) N18.3 Diabetes E11.9 Time Spent (min) 45 Comment End of life discussion and change to UROLOGIST PHYSICIAN
[2022-02-01] MEDS ORDERED: MoRPHine SULFATE 2 MG/ML CARP IV STA ×2 (08:22→09:20)
[2022-02-01] MEDS: hydroCHLOROthiazide 25 MG TAB PO SCH (08:38)
[2022-02-01] MEDS: HEPARIN SOD 5,000 UNIT/0.5 ML VIAL SQ SCH (08:38)
[2022-02-01] MEDS: HYDROXYCHLOROQUINE SULFATE 200 MG TAB PO SCH (08:38)
[2022-02-01] MEDS: ATORVASTATIN 10 MG TAB PO SCH (08:38)
[2022-02-01] MEDS: GABAPENTIN 300 MG CAP PO SCH ×2 (08:38→13:16)
[2022-02-01] MEDS: FLUTICASONE/VILANTEROL 200/25MCG 14 PUFFS/INHALER INH SCH (08:38)
[2022-02-01] MEDS: AMITRIPTYLINE HCL 25 MG TAB PO SCH (08:38)
--- NOTE | 2022-02-01 08:38 | XRay Report ---
XR chest 1V portable HISTORY: 71 years-old Female f/u follow-up study in a patient with pulmonary opacities COMPARISON: Chest radiograph 01/30/2022 TECHNIQUE: AP view of the chest FINDINGS: Cardiac silhouette is enlarged. Right upper lung opacities are redemonstrated. Mixed interstitial and alveolar opacities throughout the left lung, mildly worsened. No pneumothorax. Trace pleural effusio ns. Degenerative changes of the shoulders and spine. IMPRESSION: 1. Cardiomegaly with chronic interstitial lung disease. 2. Progressively worsened left lung opacities suggestive of superimposed pneumonia. 3. Persistent right upper lung opacity suggestive of volume loss. ACT 112: Negative or not required by law. The above report was generated using voice recognition software. It may contain grammatical, syntax o r spelling errors. Electronically signed by: Cedric Owusu M.D. 02/01/2022 8:37 AM
[2022-02-01] MEDS: VALSARTAN 80 MG TAB PO SCH (08:39)
--- NOTE | 2022-02-01 12:04 | Pulmonology Progress Note ---
Date of Service February 01, 2022 Assessment & Plan (1) Acute on chronic respiratory failure with hypoxemia: (2) GUY (obstructive sleep apnea): (3) Pulmonary hypertension: (4) Pulmonary sarcoidosis: (5) Restrictive lung disease: (6) Rheumatoid arthritis: Plan CT chest 01/26/2022 personally reviewed: Fibrotic changes appreciated bilateral upper lobes Traction bronchiectasis bilateral lower lobes Diffuse groundglass opacities appreciated upper and lower lobes especially in the lower lobes Calcified mediastinal lymph nodes with no mediastinal lymphadenopathy -- Acute on chronic hypoxic failure Multifactorial CT chest shows traction bronchiectasis as well as groundglass opacities appreciated bilateral lower lobes which is new compared to HRCT 12/30/21 This could be progression of patient's underlying sarcoidosis/ILD. Unlikely to be infectious process especially given cultures negative. Patient was given prednisone prolonged taper recently. PJP could present in the same way along with pulmonary edema S/p bronchoscopy 01/27/2022. Neutrophilic with only 8% lymphocytes. PJP PCR negative, discontinue Bactrim Bronch culture negative date Influenza A/B, COVID-19 PCR, RSV negative Procalcitonin 0.28 ESR 96, LDH 331, CRP 29.75 BNP 160 AST/ALT/bilirubin/calcium within normal limit. Alk phos chronically elevated -- Rheumatoid arthritis On Plaquenil Likely has also been found to be beneficial in dermatological sarcoidosis with hypercalcemia --GUY Continue with CPAP --Pulmonary hypertension Likely combination of type II and type III --Restrictive lung disease Severe TLC 54%, FVC 37%, DLCO 25% predicted From underlying sarcoidosis --DNI Plan: In/out: -1.1 L, urine output 1515 Chest x-ray from today shows worsening compared to 01/30/2022 Patient on Solu-Medrol 40 mg every 8hrs as well as doxycycline 100 mg twice daily Patient's clinical status has not been improving for almost a week now. She is dependent on BiPAP [id number] I had discussion with patient's son, sister, as well as other family members. I did explain to them the current condition of the patient and what to expect. If the patient is agreeable to go towards comfort measures along with the family members then that will be pursued. Patient states and patient's family will discuss with them themselves and keep us aware Case discussed with CECY Shields Please note the above document was generated using voice recognition software. It may contain grammatical, syntax or spelling errors. Any formal questions or concerns about the content, text or information contained within the body of this dictation should be directly addressed to the provider for clarification. Admission and Anticipated Discharge Date Admission Date: January 26, 2022 Subjective Patient seen and examined at bedside. Patient has been getting morphine and Ativan as needed for anxiety and distress overnight. She was on BiPAP 90% FiO2 saturating 91-92% Respiratory rate was in the high 20s. Patient's family was at bedside She stated that her mouth is dry and would like something to drink. Review of Systems Review of Systems: All systems reviewed & are unremarkable except as noted in Subjective Physical Exam Physical Exam: Constitutional: Respiratory distress HEENT: PERRLA Respiratory system: Decreased air entry bilaterally,no rhonchi, positive Velcro crackles bilateral lower lobes, positive wheezing bilaterally CVS: S1-S2 positive, no murmurs or gallops, tachycardia Abdomen: Soft, nontender, nondistended, positive bowel sounds x4 Extremities: +2 pulses bilaterally radialis/ dorsalis pedis, no cyanosis, no edema Neuro: Somnolent, easily arousable and answering questions appropriately Psych: Unable to assess G/U: No Diaz Skin: no rashes, warm and dry Lymphatic: no cervical or axillary lymphadenopathy Results & Data Results & Data ([facility]) Vital Signs (Past 12 Hours) Vital Signs Temp Pulse Pulse Pulse Resp BP Pulse Ox 02/01/22 07:57 105 H 26 H 92 02/01/22 07:57 105 H 26 H 92 02/01/22 07:44 110 H 32 H 130/70 91 02/01/22 03:50 104 H 27 H 93 02/01/22 03:13 36.6 C 108 H 21 115/55 L 94 01/31/22 23:30 100 H 22 95 01/31/22 23:30 100 H 22 95 01/31/22 23:54 36.4 C L 109 H 21 112/51 L 93 O2 Del Method FiO2 02/01/22 07:57 BiPAP 90 02/01/22 07:57 90 02/01/22 07:44 BiPAP 90 02/01/22 03:50 90 02/01/22 03:13 BiPAP 01/31/22 23:30 BiPAP 90 01/31/22 23:30 90 01/31/22 23:54 BiPAP 90 Laboratory Results 01/27/22 02:49 01/31/22 06:08 PG Care Time/CCT Total # of Minutes Spent Total Time Spent with Patient: Total time spent is greater than 50% in coordination of care (as documented) at patient's floor/unit and/or counseling patient: Coding Level of Care Code 06439 Subseq Hosp Care Lvl 3 Diagnoses Acute on chronic respiratory failure with hypoxemia J96.21 GUY (obstructive sleep apnea) G47.33 Pulmonary hypertension I27.20 Pulmonary sarcoidosis D86.0 Restrictive lung disease J98.4 Rheumatoid arthritis M06.9
[2022-02-01] MEDS ORDERED: STAT IV Infusion **Titration per Protocol STA (13:15)
[2022-02-01] MEDS ORDERED: LORazepam 0.5 MG TAB PO PRN (13:15)
[2022-02-01] MEDS ORDERED: HYDROmorphone INJ 0.5 MG/0.5 ML SYR IV PRN ×2 (13:15→16:55)
[2022-02-01] MEDS ORDERED: ACETAMINOPHEN 650 MG SUPP PR PRN (13:15)
[2022-02-01] MEDS ORDERED: MoRPHine SULF/NSS 250 MG/250 ML BTL IV SCH (13:15)
[2022-02-01] MEDS ORDERED: LORazepam 0.5 MG in SYRINGE 0.25 ML IV PRN (13:15)
[2022-02-01] MEDS ORDERED: ONDANSETRON INJ 2 MG/ML 2 ML VIAL IV PRN (13:15)
[2022-02-01] MEDS ORDERED: ONDANSETRON 4 MG OD TAB SL PRN (13:15)
[2022-02-01] MEDS ORDERED: MoRPHine SULFATE 5 MG/0.25 ML UDP PO PRN (13:15)
--- NOTE | 2022-02-02 08:45 | Discharge Summary ---
Date of Service February 02, 2022 Admission HPI Per Admitting Provider Tone Ann is a 71-year-old female with a past medical history of GUY, restrictive lung disease, pulmonary sarcoidosis, hyperparathyroidism, hypertension, hyponatremia, CKD 3, DM 2, and chronic hypoxic respiratory failure who presented to the emergency department for difficulty breathing and worsened dyspnea on exertion. She has had an increased cough. No chest pain, chest pressure, diaphoresis, extremity swelling, or orthopnea. Does have a history of sarcoidosis and has been tapering steroids. She did discuss her symptoms with her outpatient manifest/order organizer print orders who recommended she present to the ER for further evaluation Hx sarcoid on steroids x1 month. Feels worse overall for several days. Trop elevated, EKG unchanged. Cardiac vs pulmonary. No leukocytosis Hemoglobin 12.0 Sodium mildly decreased to 131, potassium 5.1 Patent baseline approximately 1.451.54 Creatinine acutely elevated on admission to 1.87 BSG 289 Troponin 51.1 high-sensitivity on admission COVID/flu/RSV negative CXR: Progressively worsened mixed interstitial and alveolar opacities, cardiomegaly with small pleural effusions, chronic reticulonodular opacities Tone reports she had a flare up of her sarcoid in December. Has been seeing Dr. Benjamin and has been on a prednisone taper. She felt she was doing great at first with good breathing and energy. Came off of it last , and ever since has had progressive weakness, shortness of breath, palpitations with 'fluttering heart' and has been more short of breath even with talking. Did has a slow fall this morning from weakness this morning and called Dr. Solis this AM who recommended she come in to the ER/hospital for further evaluation and treatment. At time of assessment denies chest pain. No shortness of breath at rest, much better with 4L o2. Uses 2L oxygen at home. No fevers, chills, or sweats No cough. No productive cough/sputum production Endorses some wheezing when breathing hard Endorses mild constipation after 1x episode of diarrhea and immodium use a few days ago. Went this AM. No melena/BRBPR. Urinating normally, has a little bit more urgency lately but no dysuria/frequency. BSG have been high with the prednisone. Usually 120s. Lately 180s-200s with prednisone. Took her medications this morning except for hctz which she takes in the evening Medical History: Reviewed Medications: Reviewed Surgical History: Reviewed Allergies: Reviewed Social History: No tobacco product use, no alcohol use. No recreational drug use. Code Status: Surrogate DM Tone. Conditional Code, compressions no intubation. Discussed w/ patient. Admission Exam Per Admitting Provider General: A&Ox3. NAD. Cooperative. HEENT: Atraumatic, normocephalic. Pupils equal and reactive to light. Vision and hearing grossly intact Pulm: high-pitched and inspiratory wheeze, no expiratory wheeze, no rales/rhonchi. symmetrical chest rise. No increased work of breathing. No respiratory distress. Cardiac: Regular, tachycardic, -mrg. Radial pulses intact and symmetrical. Abdominal: Nontender, nondistended, soft. BS present. Principal Diagnosis [id number] respiratory failure with hypoxia Discharge Exam pronouncement and exam was performed by nursing staff. Please see documentation. Discharge Data Allergies Allergy/AdvReac Type Severity Reaction Status Date / Time benzonatate Allergy Unknown UNKNOWN Verified 12/25/21 12:54 cephalexin [From Keflex] Allergy Unknown Unknown Verified 01/27/22 09:10 glimepiride Allergy Unknown Unknown Verified 01/27/22 09:10 methotrexate Allergy Unknown Unknown Verified 01/27/22 09:10 oxaprozin Allergy Unknown UNKNOWN Verified 12/25/21 12:54 propoxyphene AdvReac Intermediate nausea/vomi Verified 12/25/21 12:54 ting Consultations 01/26/22 17:35 ED Decision to Admit Stat 01/26/22 22:59 Consult Pulmonology Routine 01/31/22 15:43 Consult Palliative Care Routine 02/01/22 13:16 Consult Palliative Care Routine Ordered Studies 01/26/22 17:30 CT chest diagnostic wo con Stat Total Time Total Time Spent Total Time Spent (In Minutes): 10 Discharge Plan Discharge Items Patient Disposition: Discharge Diagnosis: [id number] respiratory failure Addtl Attending Provider Instructions: Patient was transitioned to comfort measures on day prior to expiration. She was pronounced by [id number] method; her son was at bedside. The assessment and plan below reflect her most recent changes in care prior to expiration. "Acute dyspnea: Worsening shortness of breath, history of pulmonary sarcoid on prednisone Significant escalation of oxygen requirement despite intervention with intravenous steroids and antibiotics Acute on chronic respiratory failure with hypoxia now BiPAP with 100% Pulmonary consulted and following. Bronchoscopy performed 01/27/2022. There was friable mucosa. Initial we will results from respiratory specimens include moderate normal donna, no acid-fast bacilli on the smear, no evidence of fungal infection Pulmonology recommended continuation of Bactrim for now. If final culture comes back negative, can discontinue Bactrim. We will also continue on doxycycline Patient has been on steroids since November with worsening symptoms over the last several weeks. No indication for higher doses of prednisone at this time - HR-CT-Chest 12/30/21: 1. Findings of interstitial/fibrotic lung disease with a lower lobe predominance as detailed above. This is similar to the 12/12/2019 examination and may be related to the reported history of sarcoidosis.2. There are calcified mediastinal and hilar lymph nodes.3. There is no evidence of superimposed airspace consolidation or pleural effusion.4. Cardiomegaly with evidence of pulmonary artery hypertension.5. Cholelithiasis. Tachycardia TTE: Preserved ejection fraction mild to moderate AI and 1 diastolic dysfunction mildly reduced right heart function by TAPSE - CT-C repeat: interstitial and ground glass changes infectious vs inflammatory (sarcoid) lung disease, on steroids and testing for PJP -Patient's condition has significantly deteriorated over the past two days. Discussion with the son first thing this morning and then discussion with the patient and the family at bedside. Will transition to comfort measures only. Family is in agreement at this time. Nurse and attending contacted. Orders for NUCLEAR MEDICINE OFFICER placed and initiated by RN team. All previous orders discontinued per NUCLEAR MEDICINE OFFICER order set. Elevated troponin Suspect demand, no EKG changes. No chest pain on assessment. -Currently trending down. Peaked at 59.1. Most recent values from 01/27/2022 at 24 Echocardiogram performed 01/27/2022 with normal LV systolic function and size. LVEF 55 to 60%. Grade 1 diastolic dysfunction with impaired relaxation. Hypertension Continue to hold valsartan/HCTZ for creatinine elevation Chronic kidney disease stage III - Most likely from hypertension -Creatinine 1.91. Baseline appears to be around 1.5 GERD Continue Protonix Hyperlipidemia Continue statin Type II DM On insulin 8 units twice daily, detemir 30 units daily [employer]IAN L[employer]ER Converted to basal/bolus with Lantus while inpatient Goal BSG [id number], SSI" Other Date/Time: 02/02/22 00:55 Resident Activity Tracking Resident Involvement: Resident Care Provided Care Provided: Adult Hospital Medicine
[2022-02-07] MEDS ORDERED: ERGOCALCIFEROL 50,000 UNITS 1250 MCG CAP PO ONE (09:00)
[2022-02-09 09:37] LABS: Source BAL RLL
== END 2022-02-02 04:45 | disposition expired | DRG 196 ==
LOC: ED 13:24 → SUATTDRO 17:30 → 2N 17:30 → 1E 01-27 10:41 → 2N 01-27 15:17 → 1E 01-28 10:56 → 2E 01-29 17:21